=== PATIENT | male | born 1955 | race Caucasian/White ===

== ENCOUNTER → 2019-01-06 | Outpatient (CLI) | payer MEDICARE, OTHER | LOC: LABPAT 14:23 | PROVIDERS: ATTEND Orthopaedic Surgery | DX: Z01.812 Encounter for preprocedural laboratory examination (principal) | CPT/HCPCS: 87070 ==

== ENCOUNTER → 2019-01-26 | Outpatient (CLI) | payer MEDICARE, OTHER ==
[2019-01-26 08:00] LABS: Basophils % (A) 0 %; Eosinophils # (A) 0.2 k/uL (0-0.7); Eosinophils % (A) 3 %; HCT 46.4 % (39.0-53.0); HGB 15.4 gm/dL (13.0-17.5); Lymphocytes # (A) 2.1 k/uL (1.0-4.8); Lymphocytes % (A) 43 %; MCH 30.6 pg (25.0-35.0); MCHC 33.1 g/dL (31.0-37.0); MCV 92.6 fL (80.0-100.0); Mean Platelet Volume 6.6; Monocytes # (A) 0.3 k/uL (0-1.0); Monocytes % (A) 6 %; Neutrophils # (A) 2.1 k/uL (1.3-7.7); Neutrophils % (A) 44 %; Platelet Count 141 k/uL (150-450); RBC 5.02 m/uL (4.30-5.90); RDW 13.3 % (11.5-15.5); WBC 4.8 k/uL (3.8-10.6)
[2019-01-26 08:09] LABS: Partial Thromboplastin Time 26.7 sec (22.0-30.0); Prothrombin Time 10.6 sec (9.0-12.0)
[2019-01-26 08:12] LABS: Potassium 4.3 mmol/L (3.5-5.1)
== END | disposition home or self-care (01) ==
LOC: LABPAT 07:24
PROVIDERS: ATTEND Nurse Practitioner Family
DX: Z01.812 Encounter for preprocedural laboratory examination (principal); Z79.01 Long term (current) use of anticoagulants
CPT/HCPCS: 36415; 80051; 85025; 85610; 85730

== ENCOUNTER 2019-02-02 06:24 | Inpatient (IN) | payer MEDICARE, OTHER ==
--- NOTE | 2019-02-01 13:24 | HP ---
HISTORY AND PHYSICAL REASON FOR ADMISSION: Surgery 02/02/2019 HISTORY OF PRESENT ILLNESS: Kaleb Spain is a 63-year-old patient seen with symptomatic left hip osteoarthritis. After having treatment options discussed, he elected to proceed with left total hip arthroplasty. Consent was obtained. Medical clearance was provided by Dr. Astorga. PAST MEDICAL HISTORY: Hypertension, hyperlipidemia. PAST SURGICAL HISTORY: Noncontributory. MEDICATIONS: Effexor, pravastatin. ALLERGIES: None. SOCIAL HISTORY: Denies current tobacco use. PHYSICAL EXAMINATION: Evaluation of the left hip, there is limited range of motion with severe pain. Positive hip impingement sign. Diffuse tenderness about the hip girdle. Straight leg raise negative. Distal neurovascular exam intact. RADIOGRAPHS: Radiographs of the left hip reveal severe osteoarthritic changes. IMPRESSION: 1. Left hip osteoarthritis. 2. Hypertension. 3. Hyperlipidemia. PLAN: Left total hip arthroplasty. Surgery scheduled 02/02/2019. MMODL / IJN: [id number] /
[~2019-02-02 06:24] MED LIST: ACETAMINOPHEN TAB 500 MG TAB PO ONE; DEXAMETHASONE SOD PHOSPHATE 10 MG/ML 1 ML VIAL IV ONE; HYDROmorphone 0.5 MG/0.5 ML SYRINGE IVP PRN; MELOXICAM 7.5 MG TAB PO ONE; MIDAZOLAM 2 MG/2 ML VIAL IV PRN; ONDANSETRON 4 MG/2 ML VIAL IVP ONE; TRANEXAMIC ACID 1,000 MG in SODIUM CHLORIDE 0.9% 100 ML IVPB ONE; ceFAZolin 3 GM in SODIUM CHLORIDE 0.9% 100 ML IVPB ONE
[2019-02-02] MEDS ORDERED: DEXAMETHASONE SOD PHOSPHATE 10 MG/ML 1 ML VIAL IV ONE (07:24)
[2019-02-02] MEDS: LACTATED RINGERS 1,000 ML IV SCH (07:25)
[2019-02-02] MEDS ORDERED: fentaNYL (PF) 50 MCG/ML 2 ML AMP ONE (07:26)
[2019-02-02] MEDS ORDERED: SODIUM CHLORIDE 0.9% 100 ML BAG ONE (07:26)
[2019-02-02] MEDS ORDERED: MIDAZOLAM 2 MG/2 ML VIAL ONE (07:26)
[2019-02-02] MEDS ORDERED: TRANEXAMIC ACID 1,000 MG/10 ML VIAL ONE (07:26)
[2019-02-02] MEDS ORDERED: PROPOFOL 10 MG/ML 20 ML VIAL IV ONE (07:26)
[2019-02-02] MEDS ORDERED: ROPIVACAINE 246.25 MG, EPINEPHrine 0.5 MG, KETOROLAC 30 MG, cloNIDine HCL/PF 80 MCG, WA... MISCELLANE STA ×5 (07:51)
[2019-02-02] MEDS ORDERED: ceFAZolin 3,000 MG in SODIUM CHLORIDE 0.9% IRRIGATIO 3,000 ML IRRIGATION ONE (07:58)
[2019-02-02] MEDS ORDERED: LACTATED RINGERS 1,000 ML IV ONE (09:31)
[2019-02-02] MEDS ORDERED: NALOXONE 0.4 MG/ML 1 ML VIAL IV PRN (09:34)
[2019-02-02] MEDS ORDERED: HYDROmorphone 1 MG/ML 1 ML SYRINGE IVP PRN (09:34)
[2019-02-02] MEDS ORDERED: HYDROcodone/APAP 7.5-325MG 1 EACH TAB PO PRN (09:34)
[2019-02-02] MEDS ORDERED: ONDANSETRON 4 MG/2 ML VIAL IVP PRN (09:34)
[2019-02-02] MEDS ORDERED: HYDROmorphone 0.5 MG/0.5 ML SYRINGE IVP PRN ×2 (09:34)
--- NOTE | 2019-02-02 09:34 | P.OP ---
Date of Procedure: 02/02/19 Preoperative Diagnosis: Left hip osteoarthritis Postoperative Diagnosis: Left hip osteoarthritis Procedure(s) Performed: Direct anterior left total hip arthroplasty Implants: 1. Depuy Corail KLA size 12 high offset with collar press-fit femoral stem 2. Depuy pinnacle 56 mm press-fit acetabular shell 3. Depuy pinnacle polyethylene acetabular liner neutral 36 mm ID 56 mm OD 4. Biolox delta ceramic femoral head 36 mm +5 Anesthesia: local, spinal Surgeon: Smith Gotti Senior Embedded Software Engineer #1: Damian Beck Estimated Blood Loss (ml): 200 Pathology: other (Femoral head) Condition: stable Disposition: PACU Indications for Procedure: 63-year-old patient seen with symptomatic left hip osteoarthritis. After treatment options were discussed, he elected to proceed with total hip arthroplasty. Operative Findings: See description of procedure Description of Procedure: The patient was taken to the operative suite. Patient underwent a spinal anesthetic by the department of anesthesia. Patient was then transferred to the [place] table. Patient was given preoperative IV antibiotics and TXA. Both lower extremities were placed in standard leg spars. The hip was then prepped and draped in the normal sterile orthopedic fashion. A standard anterior incision was made beginning 3 cm lateral and 1 cm distal to the ASIS extending 10 cm. Dissection was then carried down through the subcutaneous soft tissues down to the fascia overlying the tensor fascia mundo. An incision was now made through the fascia. Careful dissection was taken down exposing the tensor fascia mundo muscle. A Cobra retractor was now placed along the medial femoral neck and a second one along the lateral femoral neck. The venous circumflex vessels were now identified, cauterized and clipped. We identified the anterior hip capsule. An incision was made through the hip capsule along the lateral border. I performed a partial anterior capsulectomy. Retractors were now placed around the femoral neck itself. A femoral neck cut was now made with a sagittal saw. It was completed with an osteotome at the lateral neck area. The femoral head was now removed without difficulty. The extremity was now rotated to 45 of external rotation. It was locked in position. Residual labrum was now debrided out. Serial reaming was performed of the acetabulum while Isaiah TONEY assisted holding an anterior retractor for exposure. Once we reached the appropriate size and a trial was position and fit nicely. The appropriate size was now chosen opened and made available. It was introduced into the acetabulum without difficulty. The C-arm/fluoroscopy was now brought into the operative field. We made sure we had a true AP pelvic view. We now under direct C- arm/fluoroscopy introduced into the acetabular component with appropriate version and inclination. I held the cup in appropriate position well Isaiah TONEY used a mallet to seat the acetabular component. I noted the component now to be well seated and stable. Acetabular cup introduce her was removed. The C-arm was pulled back. An appropriate liner was introduced and clicked into position. It was felt to be stable. At this point retractors were removed. The extremity was now placed into 120 external rotation with no traction. The leg was now dropped to the ground and adducted. Appropriate retractors were now positioned along the proximal femur. We also placed our femoral look into position. Additional capsular releasing was performed to gain access to the proximal femur. We now used a box osteotome. A canal finder was now utilized. Serial broaching was now performed with the assistance of Isaiah TONEY tapping the broaches down with a mallet while held the broach in appropriate rotation and position. This was done until we reached the appropriate size with good overall rotational stability. Appropriate calcar planing was performed. A trial head/neck was placed into position. The hip was now reduced. The C- arm/fluoroscopy was brought back into the operative field. A spot film was obtained of the nonoperative hip. A spot film was obtained of the trial components. Overlays were performed, we noted good overall alignment and positioning for determining leg length. The C-arm/fluoroscopy was pulled back. Retractors were repositioned and the hip was dislocated. The leg was again luke en down to the ground and adducted. Appropriate retractors were repositioned as well as the femoral hook. All trial components were removed. The femoral implant was opened along with the femoral head. The femoral implant was introduced on the appropriate handle into our pre-broached area. I held the component position well Isaiah TONEY used a mallet to seat the femoral component. The femoral component was now noted to be well seated and stable.. The femoral head was introduced with good positioning and fixation noted. Retractors were now removed. The hip was now reduced. There appeared be good positioning of the hip confirmed on intraoperative fluoroscopy. Spot films were obtained to document this. A second gram of TXA was given. The deep and superficial soft tissues were infiltrated with local analgesic. Bipolar cautery had been utilized intermittently through the procedure for hemostasis. The wound was irrigated copiously with pulse lavage mechanical irrigation. The fascia was repaired with Vicryl suture. The subcutaneous soft tissues were repaired in layers with Vicryl suture. The skin was approximated with pernio/Dermabond. Sterile dressings were applied. Patient was then awakened, transferred to a bed and taken to recovery in stable condition. Isaiah TONEY assisted with the complex procedure.
--- NOTE | 2019-02-02 09:50 | XR ---
EXAMINATION TYPE: XR Hip Limited LT, FL guidance operating room DATE OF EXAM: 02/02/2019 COMPARISON: NONE HISTORY: 63-year-old male anterior left hip replacement FINDINGS: 2 intraoperative fluoroscopic images demonstrating left hip arthroplasty. FLUOROSCOPY Fluoroscopy time of 40 seconds was used during anterior left hip replacement. 2 image/s document/s t he procedure. IMPRESSION: Fluoroscopy as above.
--- NOTE | 2019-02-02 14:41 | P.CONS ---
History of Present Illness - Reason for Consult Consult date: 02/02/19 MEDICAL MANAGEMENT Requesting physician: Smith Gotti - Chief Complaint Left hip pain - History of Present Illness 63-year-old male with PMH of hyperlipidemia, depression presents for elective left total hip arthroplasty secondary to osteoarthritis. He underwent this procedure on 02/02/2019. There were no immediate postoperative complications. [facility] has been consulted for medical management of the patient. Patient was seen and examined. No acute events overnight. Patient reports a 3 out of 10 pain in his left hip. Pain is mostly cramp-like in nature into the buttocks and calf. Patient denies any chest pain, shortness of breath or palpitations. No nausea or vomiting. No fever or chills. No changes in urination or bowel habits. He denies any dizziness, numbness/weakness/tingling of the extremities. Review of Systems Pertinent positives and negatives as discussed in HPI, a complete review of systems was performed and all other systems are negative. Past Medical History Past Medical History: Eye Disorder, Hyperlipidemia, Osteoarthritis (OA), Sleep Apnea/CPAP/BIPAP Additional Past Medical History / Comment(s): EARLY GLAUCOMA. USES CPAP. History of Any Multi-Drug Resistant Organisms: None Reported Past Surgical History: Orthopedic Surgery Additional Past Surgical History / Comment(s): ARTHROSCOPIY PERCY SHOULDERS. NASAL SURG. Past Anesthesia/Blood Transfusion Reactions: No Reported Reaction Past Psychological History: Anxiety Smoking Status: Never smoker Past Alcohol Use History: Occasional Past Drug Use History: None Reported - Past Family History Mother Family Medical History: Cancer, Deep Vein Thrombosis (DVT) Medications and Allergies Home Medications Medication Instructions Recorded Confirmed Type [place]-3 Fatty Acids/Fish Oil [Fish 1,400 cap PO DAILY 01/26/19 02/02/19 History Oil 1,000 mg Softgel] Pravastatin Sodium [Pravachol] 40 mg PO DAILY 01/26/19 02/02/19 History Venlafaxine HCl [Effexor XR] 75 mg PO DAILY 01/26/19 02/02/19 History Allergies Allergy/AdvReac Type Severity Reaction Status Date / Time pollen extracts Allergy Mild RUNNY Verified 02/02/19 10:13 NOSE, CONGESTION Physical Exam Vitals: Vital Signs Temp Pulse Pulse Resp BP BP Pulse Ox 02/02/19 10:30 97.4 F L 46 L 12 104/68 95 02/02/19 10:15 42 L 16 106/6 96 02/02/19 10:00 62 16 92/50 97 02/02/19 09:44 97 F L 71 14 102/62 92 L 02/02/19 06:59 98.8 F 54 L 18 129/72 94 L Intake and Output 02/01/19 02/02/19 02/02/19 22:59 06:59 14:59 Intake Total 1301 Output Total 200 Balance 1101 Intake: IV 1301 Output: Estimated Blood Loss 200 General: [non toxic], [no distress], [appears at stated age] Derm: [warm], [dry] Head: [atraumatic], [normocephalic], [symmetric] Eyes: [EOMI], [no lid lag], [anicteric sclera] Mouth: [no lip lesion], [mucus membranes moist] Cardiovascular: [S1S2 reg], [no murmur], [positive DP pulse bilateral], Lungs: [CTA bilateral], [no rhonchi, no rales] , [no accessory muscle use] Abdominal: [soft], [ nontender to palpation], [no guarding], [no appreciable organomegaly] Ext: [no gross muscle atrophy], [no edema], [left hip dressing clean dry and intact] Neuro: [no focal neuro deficits] Psych: [Alert], [oriented], [appropriate affect] Assessment and Plan Assessment: Assessment and Plan Hyperlipidemia TALHA Anxiety Left hip osteoarthritis status post total hip arthroplasty postop day 0 Plan: Continue pravastatin. Plan: Continue BiPAP at bedtime. Plan: Continue Effexor. Plan: Management as per orthopedic surgery. [place], Dilaudid, meloxicam as needed for pain management. Weightbearing as per orthopedic recommendations. Follow PT and OT recommendations. Fall precautions.
[2019-02-02 15:13] VITALS: BMI 388.0
[2019-02-02] MEDS: ceFAZolin IN SWFI 2 GM/20 ML SYRINGE IVP SCH ×2 (17:19→23:16)
[2019-02-02] MEDS: HYDROcodone/APAP 7.5-325MG 1 EACH TAB PO PRN (19:31)
[2019-02-03] MEDS: HYDROcodone/APAP 7.5-325MG 1 EACH TAB PO PRN ×2 (01:33→11:04)
[2019-02-03] MEDS: LACTATED RINGERS 1,000 ML IV SCH (06:02)
[2019-02-03 07:58] LABS: Basophils % (A) 0 %; Eosinophils # (A) 0.1 k/uL (0-0.7); Eosinophils % (A) 1 %; HCT 44.8 % (39.0-53.0); HGB 14.7 gm/dL (13.0-17.5); Lymphocytes # (A) 1.8 k/uL (1.0-4.8); Lymphocytes % (A) 19 %; MCHC 32.8 g/dL (31.0-37.0); MCV 91.5 fL (80.0-100.0); Mean Platelet Volume 7.4; Monocytes # (A) 0.6 k/uL (0-1.0); Monocytes % (A) 6 %; Neutrophils # (A) 6.9 k/uL (1.3-7.7); Neutrophils % (A) 72 %; Platelet Count 140 k/uL (150-450); RBC 4.89 m/uL (4.30-5.90); RDW 14.4 % (11.5-15.5); WBC 9.5 k/uL (3.8-10.6)
[2019-02-03 08:43] VITALS: BP 134/80; PULSE 73; RESP 16; TEMP 98.9
[2019-02-03] MEDS ORDERED: VENLAFAXINE HCL ER 75 MG CAP PO SCH (09:00)
[2019-02-03] MEDS ORDERED: PRAVASTATIN SODIUM 40 MG TAB PO SCH (09:00)
[2019-02-03] MEDS ORDERED: MELOXICAM 7.5 MG TAB PO SCH (09:00)
[2019-02-03] MEDS ORDERED: ENOXAPARIN 40 MG/0.4 ML SYRINGE SQ SCH (09:00)
--- NOTE | 2019-02-03 11:22 | P.PN ---
Subjective Progress Note Date: 02/03/19 Principal diagnosis: Left hip pain Patient was seen and examined. No acute events overnight. Patient reports minimal left hip pain that is well-controlled with [place]. He denies any chest pain, shortness of breath or palpitations. Urinating freely. Worked with PT and did well. Looking for to going home. Objective - Vital Signs Vital signs: Vital Signs Temp 98.9 F 02/03/19 07:45 Pulse 73 02/03/19 07:45 Resp 16 02/03/19 07:45 BP 134/80 02/03/19 07:45 Pulse Ox 96 02/03/19 07:45 Intake & Output 02/02/19 02/03/19 02/03/19 18:59 06:59 18:59 Intake Total 1301 300 Output Total 200 Balance 1101 300 Intake: IV 1301 Intake, IV Titration 20 Amount Lactated Ringers 1,000 ml 20 @ 20 mls/hr IV .Q24H LUCERO Rx#:[id number] Oral 280 Output: Estimated Blood Loss 200 Other: Voiding Method Urinal # Voids 1 - Exam General: [non toxic], [no distress], [appears at stated age] Derm: [warm], [dry] Head: [atraumatic], [normocephalic], [symmetric] Eyes: [EOMI], [no lid lag], [anicteric sclera] Mouth: [no lip lesion], [mucus membranes moist] Cardiovascular: [S1S2 reg], [no murmur], [positive DP pulse bilateral], Lungs: [CTA bilateral], [no rhonchi, no rales] , [no accessory muscle use] Abdominal: [soft], [ nontender to palpation], [no guarding], [no appreciable organomegaly] Ext: [no gross muscle atrophy], [no edema], [left hip dressing clean dry and intact] Neuro: [no focal neuro deficits] Psych: [Alert], [oriented], [appropriate affect] - Labs CBC & Chem 7: 02/03/19 07:09 Labs: Abnormal Lab Results - Last 24 Hours (Table) 02/03/19 Range/Units 07:09 Plt Count 140 L (150-450) k/uL Assessment and Plan Assessment: Assessment and Plan Hyperlipidemia TALHA Anxiety Left hip osteoarthritis status post total hip arthroplasty postop day 1 Plan: Continue pravastatin. Plan: Continue BiPAP at bedtime. Plan: Continue Effexor. Plan: Management as per orthopedic surgery. [place], Dilaudid, meloxicam as needed for pain management. Weightbearing as per orthopedic recommendations. Follow PT and OT recommendations. Fall precautions. Patient is medically cleared for discharge. Thank for this consult.
--- NOTE | 2019-02-03 13:27 | P.PN ---
Subjective Progress Note Date: 02/03/19 Principal diagnosis: Status post direct anterior left total hip arthroplasty Patient evaluated at bedside, his is present. He is doing very well at home, his pain is well-controlled. He denies any chest pain or shortness of breath. He has done well with physical therapy. Objective - Vital Signs Vital signs: Vital Signs Temp 98.9 F 02/03/19 07:45 Pulse 73 02/03/19 07:45 Resp 16 02/03/19 07:45 BP 134/80 02/03/19 07:45 Pulse Ox 96 02/03/19 07:45 Intake & Output 02/02/19 02/03/19 02/03/19 18:59 06:59 18:59 Intake Total 1301 300 Output Total 200 Balance 1101 300 Intake: IV 1301 Intake, IV Titration 20 Amount Lactated Ringers 1,000 ml 20 @ 20 mls/hr IV .Q24H LUCERO Rx#:[id number] Oral 280 Output: Estimated Blood Loss 200 Other: Voiding Method Urinal # Voids 1 - Exam Left lower extremity: Incision is clean, dry, and intact. The exofin fusion tape is in good condition. There is minimal soft tissue swelling and ecchymosis surrounding the medial and lateral aspects of the incision. Calf is soft, no tenderness with palpation. Plantar flexion, dorsiflexion, EHL, FHL are intact. Sensory exam to light touch throughout the extremity is intact, dorsal pedis pulses 2+. - Labs CBC & Chem 7: 02/03/19 07:09 Labs: Abnormal Lab Results - Last 24 Hours (Table) 02/03/19 Range/Units 07:09 Plt Count 140 L (150-450) k/uL Assessment and Plan Plan: Assessment: Postop day #1 status post left direct anterior total hip arthroplasty Plan: Pain control, we'll discharge home on oral medication GI and DVT prophylaxis, aspirin 81 mg twice a day Wound care instructions discussed Therapy and nursing after discharge Medical management Patient will be discharged home today Time with Patient: Less than 30
--- NOTE | 2019-02-03 13:30 | P.DS ---
Providers Date of admission: 02/02/19 06:24 Expected date of discharge: 02/03/19 Attending physician: Smith Gotti Consults: 02/02/19 09:34 Consult Physician Routine Consulting Provider: Sandra Alvarado Consult Reason/Comments: Medical management Do you want consulting provider notified?: Yes Primary care physician: Hubert Astorga [facility] Course: Date of admission: 02/02/2019 Date of discharge: 02/03/2019 Admission diagnosis: Status post direct anterior left total hip arthroplasty Discharge diagnosis: Same Attending physician: Dr. Gotti Surgical procedures: Direct anterior left total hip arthroplasty Brief history: Patient is a 63-year-old male with a history of progressive primary left hip osteoarthritis. At this point patient has failed conservative treatment measures and has opted to proceed with a elective direct anterior left total hip arthroplasty. Hospital course: Details of patient's surgery can be found in operative report. Patient tolerated the procedure well and was subsequently transported to orthopedic floor. Patient's orthopeidc and medical care was provided daily. Patient had daily laboratory tests performed for evaluation of overall blood counts. Patient had daily physical therapy to include strengthening range of motion as well as education with walker ambulation. Patient was treated with Lovenox for their postoperative DVT prophylaxis during their inpatient stay. Patient was noted to have a relatively uneventful postoperative course. Patient reported satisfactory pain control with oral pain medications by postoperative day 0. Patient showed satisfactory progress with physical therapy. Patient moved steadily through the program and had no difficulty meeting the goals by postoperative day 1. Given patient's otherwise satisfactory course and having met physical therapy goals, plan is to discharge patient home on postoperative day 1. Discharge condition/disposition: Patient will be discharged home in stable condition. Discharge medications: Instructions are given on resumption of patient's normal daily medications per primary care recommendation, in addition patient will be prescribed [place] 7.5 mg/325 mg, Colace 100 mg, aspirin 81 mg. Discharge instructions: 1. Wound care and infection precautions, keep incision dry and covered while showering, no lotions, creams, moisturizers. No soaking, tubs, pools, hottubs. Do not scrub over the incision. 2. Weight-bear as tolerated with walker / cane until follow-up. 3. Ice and elevate when necessary. Do not exceed 20 minutes per hour with ice pack. 4. Utilize compression sleeve until seen at first follow up appointment. 5. Visiting nursing care. 6. Home physical therapy. 7. Pain meds and anticoagulants per prescription. 8. Pain medication has potential to cause constipation. Increase oral fluid and fiber intake. Contact primary care provider if you have not had a bowel movement within 48 hours after discharge 9. No anti-inflammatory medication until discussed at first post operative visit, this including Motrin, Aleve, Mobic, Diclofenac. 10. Follow up in office at 2 weeks postop with Isaiah Beck PA-C 11. Follow up with your primary care doctor 7-10 days after discharge. 12. Contact [facility] with any questions, . Procedures: Direct anterior left total hip arthroplasty Patient Condition at Discharge: Good Plan - Discharge Summary Discharge Rx Participant: Yes New Discharge Prescriptions: New Aspirin [Adult Low Dose Aspirin EC] 81 mg PO BID #60 tablet. Docusate [Colace] 100 mg PO DAILY #30 capsule HYDROcodone/APAP 7.5-325MG [[place] 7.5] 1 - 2 each PO Q6HR PRN #40 tab PRN Reason: Pain No Action Venlafaxine HCl [Effexor XR] 75 mg PO DAILY Pravastatin Sodium [Pravachol] 40 mg PO DAILY [place]-3 Fatty Acids/Fish Oil [Fish Oil 1,000 mg Softgel] 1,400 cap PO DAILY Discharge Medication List [place]-3 Fatty Acids/Fish Oil [Fish Oil 1,000 mg Softgel] 1,400 cap PO DAILY 01/26/19 [History] Pravastatin Sodium [Pravachol] 40 mg PO DAILY 01/26/19 [History] Venlafaxine HCl [Effexor XR] 75 mg PO DAILY 01/26/19 [History] Aspirin [Adult Low Dose Aspirin EC] 81 mg PO BID #60 tablet. 02/03/19 [Rx] Docusate [Colace] 100 mg PO DAILY #30 capsule 02/03/19 [Rx] HYDROcodone/APAP 7.5-325MG [[place] 7.5] 1 - 2 each PO Q6HR PRN #40 tab 02/03/19 [Rx] Follow up Appointment(s)/Referral(s): Hubert Astorga MD [Primary Care Provider] - 02/10/19 1:15 pm [facility], [NON-STAFF] - Damian Beck PAC [PHYSICIAN ASSISTANT PROFESSOR OF MARINE BIOLOGY] - 02/18/19 11:00 am Activity/Diet/Wound Care/Special Instructions: Orthopedic Discharge Instructions: 1. Wound care and infection precautions, keep incision dry and covered while showering, no lotions, creams, moisturizers. No soaking, pools, hot tubs. Do not scrub over incision. 2. Weight-bear as tolerated with walker / cane until follow-up. 3. Ice and elevate when necessary. Do not exceed 20 minutes per hour with ice pack. 4. Utilize compression sleeve until seen at first follow up appointment. 5. Pain meds and anticoagulants per prescription. 6. Pain medication has potential to cause constipation. Increase oral fluid and fiber intake. Contact primary care provider if you have not had a bowel movement within 48 hours after discharge. 7. No anti-inflammatory medication until discussed at first post operative visit, this including Motrin, Aleve, Mobic, Diclofenac. 8. Follow up in office at 2 weeks postop with Isaiah Beck PA-C 9. Follow up with your primary care doctor 7-10 days after discharge. 10. Contact [facility] with any questions, . Discharge Disposition: HOME WITH HOME HEALTH SERVICES
== END 2019-02-03 14:59 | disposition home health service (06) | DRG 470 ==
LOC: 2ORMAIN 06:24 → 4SSUR 09:40
PROVIDERS: ADMIT Orthopaedic Surgery; ATTEND Orthopaedic Surgery
PROC: 0SRB04A Replacement of Left Hip Joint with Ceramic on Polyethylene Synthetic Substitute, Uncemented, Open Approach (ICD-10-PCS; principal; 2019-02-02 07:30)
DX: M16.12 Unilateral primary osteoarthritis, left hip (principal); E78.5 Hyperlipidemia, unspecified; F41.9 Anxiety disorder, unspecified; G47.33 Obstructive sleep apnea (adult) (pediatric); H40.9 Unspecified glaucoma; I10 Essential (primary) hypertension; F32.9 Major depressive disorder, single episode, unspecified; G25.81 Restless legs syndrome; H91.93 Unspecified hearing loss, bilateral; Z79.899 Other long term (current) drug therapy; Z91.048 Other nonmedicinal substance allergy status; Z82.49 Family history of ischemic heart disease and other diseases of the circulatory system; Z80.1 Family history of malignant neoplasm of trachea, bronchus and lung
CPT/HCPCS: 73501; 85025; 86850; 86900; 86901; 88300

== ENCOUNTER → 2019-03-25 | Outpatient (CLI) | payer MEDICARE, OTHER ==
--- NOTE | 2019-03-25 15:27 | XR ---
EXAMINATION TYPE: XR Hip Complete LT DATE OF EXAM: 03/25/2019 CLINICAL HISTORY: Left hip pain and osteoarthritis. TECHNIQUE: Single AP portable view of left hip is obtained. COMPARISON: None. FINDINGS: Metallic hardware from left hip arthroplasty is seen and appears satisfactory in alignment and position. No fracture seen of the [place] bone of the left hip nor visualized pelvis. IMPRESSION: Metallic hardware from left hip arthroplasty is satisfactory in position.
== END | disposition home or self-care (01) ==
LOC: RADXRMAIN 12:38
PROVIDERS: ATTEND Orthopaedic Surgery
DX: Z96.642 Presence of left artificial hip joint (principal)
CPT/HCPCS: 73502

== ENCOUNTER → 2021-05-04 | Outpatient (CLI) | payer MEDICARE, OTHER ==
--- NOTE | 2021-05-04 16:30 | CT ---
EXAMINATION TYPE: CT abdomen pelvis wo con DATE OF EXAM: 05/04/2021 HISTORY: h/o kidney stones and flank pain CT DLP: 1372 mGycm. Automated Exposure Control for Dose Reduction was Utilized. TECHNIQUE: CT scan of the abdomen and pelvis is performed without oral or IV contrast. COMPARISON: NONE FINDINGS: Within the limitations of a non-contrast study, the following observations are made. LUNG BASES: No significant abnormality is appreciated. LIVER/GB: Visualized liver isodense to slightly hypodense relative to spleen consistent with mild dif fuse fatty infiltration. PANCREAS: No significant abnormality is seen. SPLEEN: No significant abnormality is seen. ADRENALS: No significant abnormality is seen. KIDNEYS: Some cortical thinning in both kidneys. No renal stones or hydronephrosis seen bilaterally. There are multiple estimated near 40-50 small dependent calculi in the urinary bladder. BOWEL: No suspicious small or large bowel dilatation. GENITAL ORGANS: Suboptimal evaluation of prostate gland due to streak artifact from adjacent left hip . LYMPH NODES: No greater than 1cm abdominal or pelvic lymph nodes are appreciated. OSSEOUS STRUCTURES: Some bridging osteophytes in the thoracic spine are noted. Metallic hardware fro m left hip arthroplasty causes streak artifact limiting evaluation of pelvic structures. OTHER: No significant additional abnormality is seen. IMPRESSION: Multiple small nondependent calculi in bladder. No hydronephrosis or obstructing ureter c alculi seen.
== END | disposition home or self-care (01) ==
LOC: RADCTMAIN 15:56
PROVIDERS: ATTEND Internal Medicine
DX: N21.0 Calculus in bladder (principal)
CPT/HCPCS: 74176

== ENCOUNTER → 2021-06-19 | Outpatient (CLI) | payer MEDICARE, OTHER ==
[2021-06-19 12:05] LABS: Basophils % (A) 1 %; Eosinophils # (A) 0.1 k/uL (0-0.7); Eosinophils % (A) 4 %; HCT 47.4 % (39.0-53.0); HGB 15.3 gm/dL (13.0-17.5); Lymphocytes # (A) 1.2 k/uL (1.0-4.8); Lymphocytes % (A) 34 %; MCH 31.3 pg (25.0-35.0); MCHC 32.2 g/dL (31.0-37.0); MCV 97.2 fL (80.0-100.0); Mean Platelet Volume 7.1; Monocytes # (A) 0.3 k/uL (0-1.0); Monocytes % (A) 8 %; Neutrophils # (A) 1.8 k/uL (1.3-7.7); Neutrophils % (A) 50 %; Platelet Count 142 k/uL (150-450); RBC 4.87 m/uL (4.30-5.90); RDW 13.1 % (11.5-15.5); WBC 3.6 k/uL (3.8-10.6)
[2021-06-19 12:20] LABS: Appearance,Urine Clear (Clear); Bilirubin,Urine Negative (Negative); Blood,Urine Negative (Negative); Color,Urine Light Yellow; Glucose,Urine (UA) Negative (Negative); Ketones,Urine Negative (Negative); Leukocyte Esterase,Urine Negative (Negative); Nitrite,Urine Negative (Negative); PH, Urine 5.5 (5.0-8.0); Protein,Urine Negative (Negative); Specific Gravity,Urine 1.015 (1.001-1.035); Urobilinogen,Urine <2.0 mg/dL (<2.0)
[2021-06-19 12:38] LABS: African American GFR (CKD) >90 (>60 ml/min/1.73 sqM); Anion Gap 7 mmol/L; Blood Urea Nitrogen 20 mg/dL (9-20); Calcium 9.4 mg/dL (8.4-10.2); Carbon Dioxide 27 mmol/L (22-30); Chloride 106 mmol/L (98-107); Glucose 91 mg/dL (74-99); Non-African American GFR(CKD) 86 (>60 ml/min/1.73 sqM); Potassium 4.4 mmol/L (3.5-5.1); Sodium 140 mmol/L (137-145)
== END ==
LOC: PAT 10:29
PROVIDERS: ATTEND Urology
DX: N21.9 Calculus of lower urinary tract, unspecified (principal); Z91.048 Other nonmedicinal substance allergy status
CPT/HCPCS: 80048; 81003; 85025; 87086

== ENCOUNTER 2021-06-26 08:47 | Day surgery (SDC) | payer MEDICARE, OTHER ==
[2021-06-21 15:57] VITALS: BMI 36.9
[~2021-06-26 08:47] MED LIST changes: -ACETAMINOPHEN TAB 500 MG TAB PO ONE; -DEXAMETHASONE SOD PHOSPHATE 10 MG/ML 1 ML VIAL IV ONE; +DEXAMETHASONE SOD PHOSPHATE 4 MG/ML 1 ML VIAL IV ONE; +LACTATED RINGERS 1,000 ML IV SCH; -MELOXICAM 7.5 MG TAB PO ONE; -MIDAZOLAM 2 MG/2 ML VIAL IV PRN; -TRANEXAMIC ACID 1,000 MG in SODIUM CHLORIDE 0.9% 100 ML IVPB ONE; -ceFAZolin 3 GM in SODIUM CHLORIDE 0.9% 100 ML IVPB ONE
[2021-06-26] MEDS ORDERED: ONDANSETRON 4 MG/2 ML VIAL ONE (09:18)
--- NOTE | 2021-06-26 09:36 | P.HPIHPCON ---
History of Present Illness H&P Date: 06/26/21 Chief Complaint: Bladder stone This is 65-year-old male with history of multiple bladder stones. He underwent a CT abdomen and pelvis that showed greater than 50 bladder stones, all measured smaller than 1 cm. He is having intermittent dysuria secondary to his bladder stones. Discussed with him the option of doing a cystolithotripsy . Discussed the risk of the procedure which includes but not limited to bleeding, infection, injury to the bladder. She will the risk and agreed to proceed Consent for Procedure: I have explained the operation/procedure to the patient, including the risks, benefits, side effects, alternative therapies (including not receiving the proposed treatment or service), the likelihood of the patient achieving his/her goals, and potential recuperation problems for the procedure/sedation/analgesia, as well as any blood products, if indicated. I also explained to the patient the risks, benefits and side effects of the alternatives, as well as the risks related to not receiving the proposed procedure, care, treatment, or services. Past Medical History Past Medical History: Eye Disorder, Hyperlipidemia, Osteoarthritis (OA), Sleep Apnea/CPAP/BIPAP Additional Past Medical History / Comment(s): EARLY GLAUCOMA. USES CPAP. History of Any Multi-Drug Resistant Organisms: None Reported Past Surgical History: Joint Replacement, Orthopedic Surgery Additional Past Surgical History / Comment(s): ARTHROSCOPIY PERCY SHOULDERS. NASAL SURG. left hip replacement. Past Anesthesia/Blood Transfusion Reactions: No Reported Reaction Past Psychological History: Anxiety Smoking Status: Never smoker Past Alcohol Use History: Occasional Past Drug Use History: None Reported - Past Family History Mother Family Medical History: Cancer, Deep Vein Thrombosis (DVT) Father Family Medical History: Coronary Artery Disease (CAD), Dementia, Osteoarthritis (OA) Medications and Allergies Home Medications Medication Instructions Recorded Confirmed Type [place]-3 Fatty Acids/Fish Oil [Fish 1,400 cap PO DAILY 01/26/19 06/26/21 History Oil 1,000 mg Softgel] Pravastatin Sodium [Pravachol] 40 mg PO DAILY 01/26/19 06/26/21 History Venlafaxine HCl [Effexor XR] 75 mg PO DAILY 01/26/19 06/26/21 History Tamsulosin [Flomax] 0.4 mg PO DAILY 06/21/21 06/26/21 History Allergies Allergy/AdvReac Type Severity Reaction Status Date / Time pollen extracts Allergy Mild RUNNY Verified 06/26/21 09:06 NOSE, CONGESTION Surgical - Exam Vital Signs Temp Pulse Resp BP Pulse Ox 97 F L 52 L 18 129/71 94 L 06/26/21 09:14 06/26/21 09:14 06/26/21 09:14 06/26/21 09:14 06/26/21 09:14 - General no distress, no pain - Eyes PERRL, normal ocular movement - ENT normal nares, normal mucosa - Respiratory normal expansion, normal respiratory effort - Abdomen Abdomen: soft, non tender - Psychiatric oriented to time, oriented to person, oriented to place Assessment and Plan Assessment: OR for cystolithotripsy
[2021-06-26] MEDS ORDERED: fentaNYL (PF) 50 MCG/ML 2 ML AMP ONE (09:50)
[2021-06-26] MEDS ORDERED: LIDOCAINE 1% INJ 10MG/ML (20 ML MDV) ONE (09:50)
[2021-06-26] MEDS ORDERED: MIDAZOLAM 2 MG/2 ML VIAL ONE (09:50)
[2021-06-26] MEDS ORDERED: SUCCINYLCHOLINE CHLORIDE VIAL 200 MG/10 ML VIAL IV ONE (09:50)
[2021-06-26] MEDS ORDERED: PROPOFOL 10 MG/ML 20 ML VIAL IV ONE (09:50)
[2021-06-26] MEDS ORDERED: KETOROLAC 15 MG/ML 1 ML VIAL ONE (09:50)
[2021-06-26] MEDS ORDERED: DEXAMETHASONE SOD PHOSPHATE 4 MG/ML 1 ML VIAL ONE (09:50)
--- NOTE | 2021-06-26 11:02 | P.OP ---
Date of Procedure: 06/26/21 Preoperative Diagnosis: Bladder stone Postoperative Diagnosis: Same Procedure(s) Performed: Cystoscopy, cystolitholapaxy(total stone burden >2.5 cm) Anesthesia: GETA Pathology: other (Bladder stone) Condition: stable Disposition: PACU Indications for Procedure: This is 65-year-old male with history of multiple bladder stones. He underwent a CT abdomen and pelvis that showed greater than 50 bladder stones, all measured smaller than 1 cm, total stone burden greater than 2.5 cm. He is having intermittent dysuria secondary to his bladder stones. Discussed with him the option of doing a cystolithotripsy . Discussed the risk of the procedure which includes but not limited to bleeding, infection, injury to the bladder. She will the risk and agreed to proceed Operative Findings: More than 50 bladder stones Description of Procedure: Patient was brought to the operating room, general anesthesia was induced. He was prepped and draped in sterile fashion and placed in dorsal lithotomy position. Cystoscopy fitted with a 21-Citizen [place] sheath was inserted per urethra, cystoscopy was performed which showed more than 50 bladder stones, otherwise no abnormality within the bladder. He did have an enlarged median lobe. Using the holmium laser the stones were fragmented into smaller fragments, all stone fragments were irrigated out using the cystoscope. Repeat cystoscopy showed no injury to the bladder or any stone remaining bladder stones. At this time the cystoscope was withdrawn and a [address] [address] was placed with return of light pink urine. The balloon was inflated with 10 mL's. Patient tolerated the procedure well taken to recovery in stable condition
[2021-06-26 11:15] VITALS: RESP 16; TEMP 97.6
[2021-06-26 12:19] VITALS: BP 121/77; PULSE 53
== END 2021-06-26 13:08 | disposition home or self-care (01) ==
LOC: OR 08:47
PROVIDERS: ATTEND Urology
DX: N21.0 Calculus in bladder (principal); F41.9 Anxiety disorder, unspecified; E78.5 Hyperlipidemia, unspecified; M19.90 Unspecified osteoarthritis, unspecified site; H40.9 Unspecified glaucoma; F32.9 Major depressive disorder, single episode, unspecified; G47.33 Obstructive sleep apnea (adult) (pediatric); Z79.899 Other long term (current) drug therapy; Z87.442 Personal history of urinary calculi
CPT/HCPCS: 82365; 52318; J2250; J0330; J1100; J0690; J2405; J2001; J3010; J1885; J2704

== ENCOUNTER → 2022-10-31 | Outpatient (CLI) | payer MEDICARE ==
--- NOTE | 2022-11-01 07:45 | MR ---
EXAMINATION TYPE: MR knee RT wo con DATE OF EXAM: 10/31/2022 COMPARISON: NONE HISTORY: Right knee inner pain for 3 weeks TECHNIQUE: Multiplanar, multisequence images of the knee is performed without IV contrast. FINDINGS: MEDIAL MENISCUS: Increased signal posterior horn has vertical and horizontal component extending to s uperior articular surface sagittal image 10. LATERAL MENISCUS: Some increased signal central body and nearly horizontal in appearance coronal imag e 24. No definitive extension to articular surface CRUCIATE LIGAMENTS: The anterior and posterior cruciate ligaments are intact and unremarkable. COLLATERAL LIGAMENTS: The medial collateral ligament and lateral collateral ligament complex are inta ct. Mild fluid signal surrounds medial collateral ligament. EXTENSOR MECHANISM: Visualized quadriceps and patellar tendons are intact. EFFUSION: Large size suprapatellar joint effusion. POPLITEAL CYST: Tiny popliteal/louis cyst. TRICOMPARTMENT SPACES: Mild to moderate narrowing and mild spurring patellofemoral compartment. CARTILAGE: Tricompartmental articular cartilage is preserved. BONE MARROW SIGNAL: No focal abnormal marrow signal is appreciated. OTHER: No additional significant abnormality is appreciated. IMPRESSION: 1. Full-thickness tear posterior horn medial meniscus. 2. Large suprapatellar joint effusion. 3. Mild MCL sprain injury. 4. At least an intrasubstance tear lateral meniscus. 4. Tricompartment degenerative changes that are most prominent at the patellofemoral compartment wher e mild to moderate changes are present as detailed above. 5. Tiny popliteal cyst.
== END | disposition home or self-care (01) ==
LOC: RADMRIMAIN 20:00
PROVIDERS: ATTEND Orthopaedic Surgery
DX: M23.221 Derangement of posterior horn of medial meniscus due to old tear or injury, right knee (principal); M17.11 Unilateral primary osteoarthritis, right knee; M25.461 Effusion, right knee; M71.21 Synovial cyst of popliteal space [Baker], right knee

== ENCOUNTER → 2022-11-27 | Outpatient (CLI) | payer MEDICARE ==
[2022-11-27 15:43] LABS: Basophils # (A) 0.03 X 10*3/uL (0.00-0.10); Basophils % (A) 0.7 %; Eosinophils # (A) 0.21 X 10*3/uL (0.04-0.35); Eosinophils % (A) 5.2 %; HCT 44.6 % (39.6-50.0); HGB 14.8 g/dL (13.0-17.0); Immature Grans, Automated 0.2 %; Lymphocytes # (A) 1.41 X 10*3/uL (0.90-5.00); MCH 31.2 pg (27.0-32.0); MCHC 33.2 g/dL (32.0-37.0); MCV 94.1 fL (80.0-97.0); Mean Platelet Volume 10.9 fL (9.5-12.2); Monocytes # (A) 0.47 X 10*3/uL (0.20-1.00); Monocytes % (A) 11.7 %; NRBC Per 100 WBC 0 /100 WBCS (0.0-0.0); Neutrophils % (A) 47.2 %; Platelet Count 126 X 10*3/uL (140-440); RBC 4.74 X 10*6/uL (4.40-5.60); RDW 13.3 % (11.5-14.5); WBC 4.03 X 10*3/uL (4.50-10.00)
[2022-11-27 16:24] LABS: Anion Gap 9.2 mmol/L (10.00-18.00); Potassium 4.6 mmol/L (3.5-5.5)
== END | disposition home or self-care (01) ==
LOC: LABWHC1 09:44
PROVIDERS: ATTEND Orthopaedic Surgery
DX: Z01.812 Encounter for preprocedural laboratory examination (principal); M23.91 Unspecified internal derangement of right knee; I45.10 Unspecified right bundle-branch block; R00.1 Bradycardia, unspecified; R94.31 Abnormal electrocardiogram [ECG] [EKG]
CPT/HCPCS: 36415; 80051; 85025; 93005

== ENCOUNTER 2022-12-20 08:00 | Day surgery (SDC) | payer MEDICARE ==
--- NOTE | 2022-12-20 00:20 | HP ---
HISTORY AND PHYSICAL Surgery is scheduled for 12/20/2022. HISTORY OF PRESENT ILLNESS: Kaleb Spain is a 67-year-old gentleman seen with progressive right knee pain. We discussed options for treatment. He elected to proceed with right knee arthroscopy. Consent regarding the procedure was obtained. PAST MEDICAL HISTORY: Hypertension, hyperlipidemia. PAST SURGICAL HISTORY: Left shoulder arthroscopy. DAILY MEDICATIONS: 1. Lisinopril. 2. Pravastatin. ALLERGIES: None. SOCIAL HISTORY: Denies tobacco use. PHYSICAL EVALUATION OF THE RIGHT KNEE: Range of motion is negative 3 to 125 degrees. Tenderness along the medial and lateral joint lines. Positive medial Phuc's. Positive lateral Phuc's. Ligaments stable. Hip rotation without pain. Distal neurovascular exam is intact. RADIOGRAPHS: Right knee radiographs reveal some mild osteoarthritic changes. MRI right knee revealed medial meniscal tear, lateral meniscal tear. No large effusion. IMPRESSION: 1. Internal derangement of right knee with medial and lateral meniscal tears. 2. Hypertension. 3. Hyperlipidemia. PLAN: Right knee arthroscopy with partial medial/lateral meniscectomy and debridement. MMODL / IJN: [id number] /
[~2022-12-20 08:00] MED LIST changes: -HYDROmorphone 0.5 MG/0.5 ML SYRINGE IVP PRN; +ceFAZolin 3 GM in SODIUM CHLORIDE 0.9% 100 ML IVPB PRN; +fentaNYL (PF) 50 MCG/ML 2 ML AMP IV PRN
[2022-12-20] MEDS ORDERED: LIDOCAINE 2% INJ 20 MG/ML (2 ML VIAL) ONE (08:05)
[2022-12-20] MEDS ORDERED: PROPOFOL 10 MG/ML 20 ML VIAL IV ONE (08:05)
[2022-12-20] MEDS ORDERED: GLYCOPYRROLATE 0.2 MG/ML 2 ML VIAL ONE (08:05)
[2022-12-20] MEDS ORDERED: MIDAZOLAM 2 MG/2 ML VIAL ONE (08:05)
[2022-12-20] MEDS ORDERED: KETOROLAC 15 MG/ML 1 ML VIAL ONE (08:05)
[2022-12-20] MEDS ORDERED: fentaNYL (PF) 50 MCG/ML 2 ML AMP ONE (08:05)
[2022-12-20] MEDS ORDERED: BUPIVACAINE (PF) 0.25% 30 ML VIAL SQ ONE ×2 (09:10→09:40)
--- NOTE | 2022-12-20 09:56 | P.OP ---
Date of Procedure: 12/20/22 Preoperative Diagnosis: Internal derangement right knee Postoperative Diagnosis: 1. Tear medial and lateral meniscus right knee 2. Grade 4 chondromalacia medial femoral condyle right knee 3. Reactive synovitis medial, lateral and suprapatellar compartments right knee Procedure(s) Performed: 1. Arthroscopic partial medial and lateral meniscectomy right knee 2. Arthroscopic microfracture medial femoral condyle right knee 3. Arthroscopic partial synovectomy medial, lateral and suprapatellar compartments right knee Anesthesia: MARYANNEA, local Surgeon: Smith Gotti Estimated Blood Loss (ml): 7 Pathology: none sent Condition: stable Disposition: PACU Indications for Procedure: 67-year-old patient seen with progressive right knee pain. After having treatment options discussed, he elected to proceed with arthroscopy. Operative Findings: see description of procedure Description of Procedure: Patient was taken to the operative suite. Patient underwent a general anesthetic by the department of anesthesia. Patient was given preoperative antibiotics. The right lower extremity was placed in a well-padded arthroscopic leg dawson. The right leg was prepped and draped in the normal sterile orthopedic fashion. A lateral parapatellar and suprapatellar incision was made. Trochars were inserted. Arthroscopy was initiated. Suprapatellar pouch revealed diffuse thick reactive synovitis. The patellofemoral joint appeared to articulate congruently. There was grade 1 chondromalacia patella with no tears. The scope was guided into the medial gutter. No loose bodies or plica were identified. The scope was then guided into the medial compartment. A medial parapatellar incision was made. Trocar inserted followed by probe. There was a complex tear involving the posterior horn medial meniscus extending into the midbody area. There were areas of grade 3/4 chondromalacia medial femoral condyle with some small osteochondral flap tears. There was thick reactive synovitis anteriorly. I performed a partial medial meniscectomy getting down to stable meniscal tissue. I performed a chondroplasty medial femoral condyle as well as a partial synovectomy decompressing reactive synovitis. I did note a small area of exposed bone medial femoral condyle measuring about 0.7 cm. I introduced a microfracture awl and I performed a microfracture to that area penetrating the bone with resultant bleeding at the microfracture site. Residual meniscus was probed and was found to be stable. The residual osteochondral surface appeared stable. There was good decompression of the synovitis. Scope and probe were then guided into the intercondylar notch. Cruciates were identified, probed and found to be stable. The scope and probe were then guided into lateral compartment. There was a radial tear involving the mid body and posterior horn lateral meniscus. There were some mild grade 1 chondromalacia changes of the tibial plateau. There was some thick reactive synovitis anteriorly. I performed a partial lateral meniscectomy. I performed a partial synovectomy. The residual meniscus was stable. There was good decompression of the synovitis. The scope was in guided back into the suprapatellar compartment. I introduced a motorized shaver into the suprapatellar compartment. I debrided some piecemeal fragments of meniscus I encountered. I performed a partial synovectomy. Shaver was now removed. There was good decompression of the synovitis. I took one more look on the entire knee, no residual debris. Instruments were now removed from the joint. The joint was infiltrated with .25% Marcaine. Steri-Strips were applied to the portal sites. Sterile dressings were applied. The patient was placed into a NEGRA hose. No tourniquet was utilized. The patient was awakened, transferred to a bed and taken to recovery stable satisfactory condition.
[2022-12-20 09:57] VITALS: RESP 16; TEMP 96.8
[2022-12-20 10:55] VITALS: BP 124/59; PULSE 49
== END 2022-12-20 11:08 | disposition home or self-care (01) ==
LOC: OR 08:00
PROVIDERS: ATTEND Orthopaedic Surgery
DX: M23.300 Other meniscus derangements, unspecified lateral meniscus, right knee (principal); M23.303 Other meniscus derangements, unspecified medial meniscus, right knee; M94.261 Chondromalacia, right knee; M65.861 Other synovitis and tenosynovitis, right lower leg; I10 Essential (primary) hypertension; E78.5 Hyperlipidemia, unspecified; Z79.899 Other long term (current) drug therapy

== ENCOUNTER 2023-04-26 11:01 | Day surgery (SDC) | payer MEDICARE ==
[2023-04-24 14:49] VITALS: BMI 35.1
[2023-04-26] MEDS: LACTATED RINGERS 1,000 ML IV SCH ×2 (12:37→13:08)
[2023-04-26 12:54] VITALS: TEMP 97.1
[2023-04-26] MEDS ORDERED: PROPOFOL 10 MG/ML 20 ML VIAL IV ONE (13:09)
--- NOTE | 2023-04-26 13:29 | P.PCN ---
Date of Procedure: 04/26/23 Procedure(s) Performed: BRIEF HISTORY: Patient is a 67-year-old pleasant white male scheduled for an elective colonoscopy as a part of screening for colon cancer. PROCEDURE PERFORMED: Colonoscopy. PREOPERATIVE DIAGNOSIS: Screening for colon cancer. IV sedation per Anesthesia. PROCEDURE: After informed consent was obtained, the patient, was brought into the endoscopy unit. IV sedation was administered by Anesthesia under continuous monitoring. Digital rectal examination was normal. Initially the Olympus CF-160 flexible video colonoscope was then inserted in the rectum, gradually advanced into the cecum without any difficulty. Careful examination was performed as the scope was gradually being withdrawn. Ileocecal valve and the appendiceal orifice were visualized and appeared normal. Prep was excellent. Mucosa of the cecum, ascending colon, transverse colon, descending colon, sigmoid colon, and rectum appeared normal. Retroflexion was performed in the rectum and no lesions were seen. The patient tolerated the procedure well. IMPRESSION: Normal-appearing colon from rectum to cecum with no evidence of colorectal neoplasia. RECOMMENDATIONS: Findings of this examination were discussed with the patient as well as his family.. He was advised to have a repeat screening colonoscopy in 10 years.
[2023-04-26 13:55] VITALS: BP 100/78; PULSE 47; RESP 18
== END 2023-04-26 14:17 | disposition home or self-care (01) ==
LOC: ORWHC2ENDO 11:01
PROVIDERS: ATTEND Internal Medicine Gastroenterology
DX: Z12.11 Encounter for screening for malignant neoplasm of colon (principal); I10 Essential (primary) hypertension; E78.5 Hyperlipidemia, unspecified; G47.33 Obstructive sleep apnea (adult) (pediatric); M19.90 Unspecified osteoarthritis, unspecified site; Z79.811 Long term (current) use of aromatase inhibitors; Z79.899 Other long term (current) drug therapy
CPT/HCPCS: J2704; G0121

== ENCOUNTER → 2023-11-04 | Outpatient (CLI) | payer MEDICARE ==
[2023-11-04 21:57] LABS: Chol/HDL Ratio 4.67 Ratio; LDL Cholesterol,Calculated 82.4 mg/dL (0.0-131.0); Prostate Specific Antigen 0.21 ng/mL (0.000-6.500)
== END | disposition home or self-care (01) ==
LOC: LABPAT 15:03
PROVIDERS: ATTEND Orthopaedic Surgery
DX: Z01.812 Encounter for preprocedural laboratory examination (principal); Z22.322 Carrier or suspected carrier of Methicillin resistant Staphylococcus aureus; M16.11 Unilateral primary osteoarthritis, right hip; E66.9 Obesity, unspecified
CPT/HCPCS: 80061; 83036; 84153; 84443; 86850; 86900; 86901; 87070

== ENCOUNTER → 2023-11-07 | Outpatient (CLI) | payer MEDICARE ==
[2023-11-07 16:05] LABS: Blood Urea Nitrogen 20.6 mg/dL (9.0-27.0); Calcium 9.2 mg/dL (8.7-10.3); Chloride 108 mmol/L (96-109); Glucose 94 mg/dL (70-110); Sodium 142 mmol/L (135-145)
[2023-11-07 16:33] LABS: Basophils # (A) 0.02 X 10*3/uL (0.00-0.10); Basophils % (A) 0.5 %; Eosinophils % (A) 2.3 %; HCT 44.3 % (39.6-50.0); HGB 14.6 g/dL (13.0-17.0); Immature Grans, Automated 0 %; Lymphocytes # (A) 1.43 X 10*3/uL (0.90-5.00); Lymphocytes % (A) 32.7 %; MCH 30.5 pg (27.0-32.0); MCV 92.5 FL (80.0-97.0); Mean Platelet Volume 10.7 FL (9.5-12.2); Monocytes # (A) 0.47 X 10*3/uL (0.20-1.00); Monocytes % (A) 10.8 %; NRBC Per 100 WBC 0 X 10*3/uL (0.00-0.01); Neutrophils # (A) 2.35 X 10*3/uL (1.80-7.70); Neutrophils % (A) 53.7 %; Platelet Count 143 X 10*3/uL (140-440); RBC 4.79 X 10*6/uL (4.40-5.60); RDW 13.3 % (11.5-14.5); WBC 4.37 X 10*3/uL (4.50-10.00)
[2023-11-07 20:15] LABS: INR 1.07 sec (0.93-1.11); Prothrombin Time 11.5 sec (9.9-11.9)
== END | disposition home or self-care (01) ==
LOC: LABPAT 11:19
PROVIDERS: ATTEND Orthopaedic Surgery
DX: Z01.812 Encounter for preprocedural laboratory examination (principal); M16.11 Unilateral primary osteoarthritis, right hip
CPT/HCPCS: 36415; 80048; 85025; 85610

== ENCOUNTER 2023-11-11 10:11 | Day surgery (SDC) | payer MEDICARE ==
--- NOTE | 2023-11-10 12:30 | HP ---
HISTORY AND PHYSICAL DATE OF SURGERY: 11/11/2023. HISTORY OF PRESENT ILLNESS: Kaleb Spain is a 68-year-old gentleman, seen with symptomatic right hip osteoarthritis. We discussed options. He elected to proceed with direct anterior right total hip arthroplasty. Consents obtained. Medical clearance by Dr. Juan Antonio Leal. PAST MEDICAL HISTORY: Hypertension and hyperlipidemia. PAST SURGICAL HISTORY: Left shoulder arthroscopy, left total hip arthroplasty, and right knee arthroscopy. DAILY MEDICATIONS: 1. Pravastatin. 2. Lisinopril. 3. Motrin. ALLERGIES: None. SOCIAL HISTORY: Denies tobacco use. PHYSICAL EVALUATION OF THE RIGHT HIP: He has limited range of motion with significant pain. Positive hip impingement sign. Straight-leg raise negative. Distal neurovascular exam is intact. RADIOGRAPHS: Right hip revealed severe osteoarthritic changes. IMPRESSION: 1. Right hip osteoarthritis. 2. Hypertension. 3. Hyperlipidemia. PLAN: Direct anterior approach, right total hip arthroplasty. MMODL / IJN: [id number] /
[~2023-11-11 10:11] MED LIST changes: -DEXAMETHASONE SOD PHOSPHATE 4 MG/ML 1 ML VIAL IV ONE; +HYDROmorphone 0.5 MG/0.5 ML SYRINGE IVP PRN; -LACTATED RINGERS 1,000 ML IV SCH; +MIDAZOLAM 2 MG/2 ML VIAL IV PRN; -ONDANSETRON 4 MG/2 ML VIAL IVP ONE; +TRANEXAMIC 1,000 MG/100ML-NACL 1,000 MG in SALINE 1 100ML.BAG IVPB PRN; -ceFAZolin 3 GM in SODIUM CHLORIDE 0.9% 100 ML IVPB PRN; -fentaNYL (PF) 50 MCG/ML 2 ML AMP IV PRN
[2023-11-11] MEDS: MELOXICAM 7.5 MG TAB PO PRN (11:34)
[2023-11-11] MEDS: ACETAMINOPHEN TAB 500 MG TAB PO PRN (11:35)
[2023-11-11] MEDS: ONDANSETRON 4 MG/2 ML VIAL IVP ONE (11:35)
[2023-11-11] MEDS: DEXAMETHASONE SOD PHOSPHATE 4 MG/ML 1 ML VIAL IV ONE (11:35)
[2023-11-11] MEDS: fentaNYL (PF) 50 MCG/ML 2 ML AMP IVP ONE (11:42)
[2023-11-11] MEDS: MIDAZOLAM 2 MG/2 ML VIAL IVP ONE (11:43)
[2023-11-11] MEDS: LACTATED RINGERS 1,000 ML IV SCH ×2 (11:52→22:37)
--- NOTE | 2023-11-11 11:55 | P.ANPRN ---
Procedure Note - Anesthesia - Nerve Block Performed Right Kurtis Single Time Out Performed: Yes (1141) Date of Procedure: 11/11/23 Location of Patient: PreOp Indication: Acute Post-Operative Pain, Dx/Pain Location (Right hip), Requested by Surgeon Specifically requested for management of pain by DrPrudencio: Smith Gotti Sedation Type: Sedate with meaningful contact maintained Preparation: Sterile Prep Position: Supine Catheter: None Needle Types: Pajunk Needle Gauge: 21 Ultrasound used to visualize needle placement: Yes Ultrasound used to observe medication spread: Yes Injectate: 0.5% Ropivacaine (see comment for volume) (20 mL +10 mL of normal saline +4 mg of Decadron) Blood Aspirated: No Pain Paresthesia on Injection Noted: No Resistance on Injection: Normal Image Stored and Saved: Yes Events: Uneventful and Well Tolerated
[2023-11-11] MEDS ORDERED: TRANEXAMIC 1,000 MG/100ML-NACL PREMIX BAG ONE (12:24)
[2023-11-11] MEDS ORDERED: KETAMINE HCL IN 0.9 % NACL 50 MG/5 ML SYRINGE ONE (12:24)
[2023-11-11] MEDS ORDERED: SODIUM CHLORIDE 0.9% (PF) 10 ML VIAL ONE (12:24)
[2023-11-11] MEDS ORDERED: MIDAZOLAM 2 MG/2 ML VIAL ONE (12:24)
[2023-11-11] MEDS ORDERED: ROPIVACAINE 5 MG/ML 30 ML VIAL ONE (12:24)
[2023-11-11] MEDS ORDERED: DEXAMETHASONE SOD PHOSPHATE 4 MG/ML 1 ML VIAL ONE (12:24)
[2023-11-11] MEDS ORDERED: LIDOCAINE 2% (PF) 20 MG/ML 2 ML VIAL ONE (12:24)
[2023-11-11] MEDS ORDERED: PROPOFOL 10 MG/ML 20 ML VIAL IV ONE (12:24)
[2023-11-11] MEDS ORDERED: ePHEDrine 50 MG/ML 1 ML VIAL ONE (12:24)
[2023-11-11] MEDS: ceFAZolin 1,000 MG in SODIUM CHLORIDE 0.9% 1,000 ML IRRIGATION ONE (12:26)
[2023-11-11] MEDS: ceFAZolin 3 GM in SODIUM CHLORIDE 0.9% 100 ML IVPB PRN (12:26)
[2023-11-11] MEDS: LACTATED RINGERS 1,000 ML IV ONE (13:25)
[2023-11-11] MEDS ORDERED: ONDANSETRON 4 MG/2 ML VIAL IVP PRN (14:19)
[2023-11-11] MEDS ORDERED: HYDROmorphone 0.5 MG/0.5 ML SYRINGE IVP PRN ×2 (14:19)
[2023-11-11] MEDS ORDERED: HYDROcodone/APAP 5-325MG 1 EACH TAB PO PRN (14:19)
[2023-11-11] MEDS ORDERED: NALOXONE 0.4 MG/ML 1 ML VIAL IV PRN (14:19)
--- NOTE | 2023-11-11 14:19 | P.OP ---
Date of Procedure: 11/11/23 Preoperative Diagnosis: Right hip osteoarthritis Postoperative Diagnosis: Right hip osteoarthritis Procedure(s) Performed: Direct anterior right total hip arthroplasty Implants: 1. DePuy Corail KLA size 12 high offset with a collar press-fit femoral stem 2. DePuy George 56 mm press-fit acetabular shell 3. DePuy George neutral polyethylene acetabular liner 36 mm ID 56 mm OD 4. Biolox delta ceramic femoral head +5 36 mm 5. George cancellous bone screw 6.5 mm x 20 mm Anesthesia: regional (Erector spinae block), spinal Surgeon: Smith Gotti Multimedia Journalist #1: Damian Beck Estimated Blood Loss (ml): 65 Pathology: none sent Condition: stable Disposition: PACU Indications for Procedure: 68-year-old patient seen with symptomatic right hip osteoarthritis. After having treatment options discussed, he elected to proceed with direct anterior right total hip arthroplasty. Operative Findings: See description of procedure Description of Procedure: The patient was taken to the operative suite. Patient underwent a spinal anesthetic by the department of anesthesia. Patient was then transferred to the [place] table. Patient was given preoperative IV antibiotics and TXA. Both lower extremities were placed in standard leg spars. The hip was then prepped and draped in the normal sterile orthopedic fashion. A standard anterior incision was made beginning 3 cm lateral and 1 cm distal to the ASIS extending 10 cm. Dissection was then carried down through the subcutaneous soft tissues down to the fascia overlying the tensor fascia mundo. An incision was now made through the fascia. Careful dissection was taken down exposing the tensor fascia mundo muscle. A Cobra retractor was now placed along the medial femoral neck and a second one along the lateral femoral neck. The venous circumflex vessels were now identified, cauterized and clipped. We identified the anterior hip capsule. An incision was made through the hip capsule along the lateral border. I performed a partial anterior capsulectomy. Retractors were now placed around the femoral neck itself. A femoral neck cut was now made with a sagittal saw. It was completed with an osteotome at the lateral neck area. The femoral head was now removed without difficulty. The extremity was now rotated to 60 of external rotation. It was locked in position. Residual labrum was now debrided out. Serial reaming was performed of the acetabulum while Isaiah TONEY assisted holding an anterior retractor for exposure. Once we reached the appropriate size and a trial was position and fit nicely. The appropriate size was now chosen opened and made available. It was introduced into the acetabulum without difficulty. The C-arm/fluoroscopy was now brought into the operative field. We made sure we had a true AP pelvic view. We now under direct C- arm/fluoroscopy introduced into the acetabular component with appropriate version and inclination. I held the cup in appropriate position well Isaiah TONEY used a mallet to seat the acetabular component. I noted the component now to be well seated and stable. I did decide to augment the fixation with 1 single cancellous bone screw which had good purchase and fixation. The C-arm was pulled back. An appropriate liner was introduced and clicked into position. It was felt to be stable. At this point retractors were removed. The extremity was now placed into 140 external rotation with no traction. The leg was now dropped to the ground and adducted. Appropriate retractors were now positioned along the proximal femur. We also placed our femoral look into position. Additional capsular releasing was performed to gain access to the proximal femur. We now used a box osteotome. A canal finder was now utilized. Serial broaching was now performed with the assistance of Isaiah TONEY tapping the broaches down with a mallet while held the broach in appropriate rotation and position. This was done until we reached the appropriate size with good overall rotational stability. Appropriate calcar planing was performed. A trial head/neck was placed into position. The hip was now reduced. The C- arm/fluoroscopy was brought back into the operative field. I obtained an AP of the pelvis which demonstrated adequate leg length alignment. The trial components appeared adequately sized and position. The C-arm/fluoroscopy was pulled back. Retractors were repositioned and the hip was dislocated. The leg was again taken down to the ground and adducted. Appropriate retractors were repositioned as well as the femoral hook. All trial components were removed. The femoral implant was opened along with the femoral head. The femoral implant was introduced on the appropriate handle into our pre-broached area. I held the component position well Isaiah TONEY used a mallet to seat the femoral component. The femoral component was now noted to be well seated and stable.. The femoral head was introduced with good positioning and fixation noted. Retractors were now removed. The hip was now reduced. There appeared be good positioning of the hip confirmed on intraoperative fluoroscopy. Spot films were obtained to document this. A second gram of TXA was given. Bipolar cautery had been utilized intermittently through the procedure for hemostasis. The wound was irrigated copiously with pulse lavage mechanical irrigation. The fascia was repaired with Vicryl suture. The subcutaneous soft tissues were repaired in layers with Vicryl suture. The skin was approximated with pernio/Dermabond. Sterile dressings were applied. Patient was then awakened, transferred to a bed and taken to recovery in stable condition. Isaiah TONEY assisted with the complex procedure.
--- NOTE | 2023-11-11 15:47 | XR ---
Fluoroscopy INDICATION: Pain FINDINGS: Fluoroscopy time: 17 seconds. Total dose area product (DAP) in uGy*m?, mGy*cm? (or similar): 1.0325 Images obtained: 3. IMPRESSION: 1. Documentation of fluoroscopy.
[2023-11-11] MEDS: HYDROmorphone 0.5 MG/0.5 ML SYRINGE IVP PRN (16:04)
--- NOTE | 2023-11-11 16:23 | FL ---
Fluoroscopy INDICATION: Pain FINDINGS: Fluoroscopy time: 17 seconds. Total dose area product (DAP) in uGy*m?, mGy*cm? (or similar): 1.0325 Images obtained: 0. IMPRESSION: 1. Documentation of fluoroscopy.
[2023-11-11] MEDS: ceFAZolin 3 GM in SODIUM CHLORIDE 0.9% 100 ML IVPB SCH (20:22)
[2023-11-11] MEDS: SENNOSIDES-DOCUSATE SODIUM 1 EACH TAB PO SCH (20:22)
[2023-11-12] MEDS: HYDROcodone/APAP 7.5-325MG 1 EACH TAB PO PRN (01:54)
[2023-11-12 03:01] VITALS: RESP 17
[2023-11-12 08:45] VITALS: BP 142/51; PULSE 54; TEMP 97.8
[2023-11-12] MEDS: FAMOTIDINE 20 MG TAB PO SCH (09:21)
[2023-11-12] MEDS: ENOXAPARIN 40 MG/0.4 ML SYRINGE SQ SCH (09:21)
[2023-11-12] MEDS ORDERED: LORATADINE 10 MG TAB PO PRN (10:54)
--- NOTE | 2023-11-12 11:07 | P.CONS ---
History of Present Illness - Reason for Consult Consult date: 11/12/23 Medical management hypertension Requesting physician: Smith Gotti - Chief Complaint Right hip osteoarthritis status post direct anterior right total hip arthro - History of Present Illness This is a pleasant 68-year-old gentleman with past medical history significant for hypertension, hyperlipidemia, osteoarthritis, sleep apnea wears CPAP, glaucoma, anxiety, and multiple other medical issues, status post direct anterior right total hip arthroplasty. Tolerated procedure well. Ambulating with walker within room, tolerating exertion well. PT/stairs pending. reports significant pain during the night, improved with pain management regime. Passing flatus, no bowel movement. Denies chest pain, palpitations or shortness of breath. Maintaining O2 sats in the mid to high 90s on room air .vital signs stable/blood pressures controlled. Afebrile. Denies lightheadedness dizziness, focal deficits. Review of Systems Constitutional: Denied any fatigue denied any fever. Cardio vascular: denied any chest pain, palpitations Gastrointestinal denied any nausea vomiting Pulmonary: Denied any shortness of breath cough Neurologic denied any new focal deficits ROS Statement: Those systems with pertinent positive or pertinent negative responses have been documented in the HPI. ROS Other: All systems not noted in ROS Statement are negative. Past Medical History Past Medical History: Eye Disorder, Hyperlipidemia, Hypertension, Osteoarthritis (OA), Sleep Apnea/CPAP/BIPAP Additional Past Medical History / Comment(s): EARLY GLAUCOMA. USES CPAP. History of Any Multi-Drug Resistant Organisms: None Reported Past Surgical History: Orthopedic Surgery Additional Past Surgical History / Comment(s): ARTHROSCOPIY PERCY SHOULDERS. NASAL SURG. hip replaced left , colonoscopy , december 20 right meniscus surgery, Past Anesthesia/Blood Transfusion Reactions: No Reported Reaction Past Psychological History: Anxiety Smoking Status: Never smoker Past Alcohol Use History: Occasional Past Drug Use History: None Reported - Past Family History Mother Family Medical History: Cancer, Deep Vein Thrombosis (DVT) Additional Family Medical History / Comment(s): lung Father Family Medical History: Coronary Artery Disease (CAD), Dementia, Osteoarthritis (OA) Medications and Allergies Home Medications Medication Instructions Recorded Confirmed Type Pravastatin Sodium [Pravachol] 40 mg PO DAILY 01/26/19 11/05/23 History Tamsulosin [Flomax] 0.4 mg PO DAILY 06/21/21 11/05/23 History lisinopriL [Lisinopril] 10 mg PO DAILY 12/17/22 11/05/23 History Ibuprofen [Motrin Ib] 200 mg PO DIRECTED PRN 11/05/23 11/05/23 History Otc Claritan 10 mg PO DAILY PRN 11/05/23 11/05/23 History Allergies Allergy/AdvReac Type Severity Reaction Status Date / Time pollen extracts Allergy Mild RUNNY Verified 11/05/23 12:36 NOSE, CONGESTION Physical Exam Vitals: Vital Signs Temp Pulse Pulse Resp BP BP Pulse Ox 11/12/23 08:34 97.8 F 54 L 17 142/51 97 11/12/23 01:47 97.9 F 60 17 113/69 95 11/11/23 18:53 97.4 F L 77 20 119/67 94 L 11/11/23 18:15 74 122/68 93 L 11/11/23 18:00 73 128/76 92 L 11/11/23 17:45 78 109/67 91 L 11/11/23 17:30 78 127/79 93 L 11/11/23 17:15 75 122/77 94 L 11/11/23 17:00 67 157/120 96 11/11/23 16:45 63 112/67 88 L 11/11/23 16:30 72 117/74 99 11/11/23 16:15 61 126/79 97 11/11/23 16:02 97.6 F 62 18 121/78 95 11/11/23 15:30 52 L 16 98/75 99 11/11/23 15:15 48 L 16 93/56 97 11/11/23 15:00 57 L 16 110/60 97 11/11/23 14:45 54 L 16 102/64 97 11/11/23 14:30 97 F L 69 16 99/55 97 11/11/23 11:06 97.4 F L 45 L 18 115/61 94 L Intake and Output 11/11/23 11/12/23 11/12/23 22:59 06:59 14:59 Intake Total 300 Output Total 425 Balance 300 -425 Intake: IV 300 Output: Urine 425 Other: Weight 105.2 kg PHYSICAL EXAM: VITAL SIGNS: [As above] GENERAL: Alert and oriented x 3, pleasant, sitting up in bed, no acute distress HEENT: Normocephalic conjunctivae normal. eyes normal. NECK: Supple, no JVD. CARDIOVASCULAR: S1, S2 regular.. No murmur RESPIRATION: Unlabored, equal air entry, clear to auscultation . ABDOMEN: Soft, nontender . No guarding. no masses palpable. +BS. EXTREMITIES: Right lower extremity dressing clean dry and intact, minimal edema, no calf tenderness, positive DP pulse NERVOUS SYSTEM: Cranial N 2-12 grossly normal. Moves all 4 limbs. No focal deficits. Strength and sensation grossly intact. Skin: Warm and dry, no rash Assessment and Plan Assessment: Right hip osteoarthritis, status post direct anterior right total hip arthroplasty Obstructive sleep apnea, uses CPAP Morbid obesity, BMI 32 Hypertension Hyperlipidemia Glaucoma, reported early Anxiety Plan: Continue on current medication regimen ,monitoring and symptomatic treatment. Pain management, DVT prophylaxis as per primary. Aggressive pulmonary toileting with incentive spirometer reinforced. Home meds have been reviewed and resumed accordingly. PT/stairs pending. Discharge planning in progress as per orthopedic surgery. Follow-up with PCP in 1 week. Thank you for the consult. The impression and plan of care has been dictated as directed. : I performed a history and examination of this patient, discussed the same with the dictator. I agree with the dictator's note ,documented as a scribe. Any additional findings or plans will be noted.
[2023-11-12] MEDS: PANTOPRAZOLE 40 MG/10 ML VIAL IVP SCH (11:08)
[2023-11-12] MEDS: MULTIVITAMINS, THERA 1 EACH TAB PO SCH (11:08)
[2023-11-12] MEDS: TAMSULOSIN 0.4 MG CAP.ER.24H PO SCH (11:08)
[2023-11-12 12:09] LABS: Basophils # (A) 0.01 X 10*3/uL (0.00-0.10); Basophils % (A) 0.1 %; Eosinophils # (A) 0.01 X 10*3/uL (0.04-0.35); Eosinophils % (A) 0.1 %; HCT 40.4 % (39.6-50.0); HGB 13.4 g/dL (13.0-17.0); Lymphocytes # (A) 1.02 X 10*3/uL (0.90-5.00); Lymphocytes % (A) 10.5 %; MCH 30.9 pg (27.0-32.0); MCHC 33.2 g/dL (32.0-37.0); MCV 93.3 FL (80.0-97.0); Mean Platelet Volume 11.1 FL (9.5-12.2); Monocytes # (A) 0.76 X 10*3/uL (0.20-1.00); Monocytes % (A) 7.8 %; NRBC Per 100 WBC 0 X 10*3/uL (0.00-0.01); Neutrophils # (A) 7.87 X 10*3/uL (1.80-7.70); Neutrophils % (A) 81.1 %; Platelet Count 127 X 10*3/uL (140-440); RBC 4.33 X 10*6/uL (4.40-5.60); RDW 13.2 % (11.5-14.5); WBC 9.71 X 10*3/uL (4.50-10.00)
--- NOTE | 2023-11-12 12:42 | P.PN ---
Subjective Progress Note Date: 11/12/23 Principal diagnosis: Status post direct anterior right total hip arthroplasty Patient evaluated at bedside today, he is sitting up having lunch. He he has been ambulating with no significant difficulty. He did very well with physical therapy. He does admit to some slight discomfort on the lateral aspect of the thigh. Currently has no headaches, lightheadedness, chest pain or shortness of breath Objective - Vital Signs Vital signs: Vital Signs Temp 97.8 F 11/12/23 08:34 Pulse 54 L 11/12/23 08:34 Resp 17 11/12/23 08:34 BP 142/51 11/12/23 08:34 Pulse Ox 97 11/12/23 08:34 FiO2 Intake & Output 11/11/23 11/12/23 11/12/23 18:59 06:59 18:59 Intake Total 1901 Output Total 65 425 Balance 1836 -425 Weight 105.2 kg Intake: IV 1901 Output: Urine 425 Estimated Blood Loss 65 - Exam Right lower extremity: Incision is clean, dry, and intact. The foam dressing is in good condition. There is minimal soft tissue swelling and ecchymosis surrounding the medial and lateral aspects of the incision. Calf is soft, no tenderness with palpation. Plantar flexion, dorsiflexion, EHL, FHL are intact. Sensory exam to light touch throughout the extremity is intact, dorsal pedis pulses 2+. - Labs CBC & Chem 7: 11/12/23 06:11 Labs: Abnormal Lab Results - Last 24 Hours (Table) 11/12/23 Range/Units 06:11 RBC 4.33 L (4.40-5.60) X 10*6/uL Plt Count 127 L (140-440) X 10*3/uL Neutrophils # 7.87 H (1.80-7.70) X 10*3/uL Eosinophils # 0.01 L (0.04-0.35) X 10*3/uL Assessment and Plan Assessment: Postoperative day #1 status post direct anterior right total hip arthroplasty Plan: Pain control, plan for discharge with [place] 7.5 mg / 325 mg DVT prophylaxis, aspirin 81 mg twice daily for 30 days Wound care instructions discussed, this to include when to remove bandage, showering instructions, and icing and elevating Home PT/OT after discharge Medical recommendations appreciated Discharge planning: Stable for discharge home today Time with Patient: Less than 30
--- NOTE | 2023-11-12 12:45 | P.DS ---
Providers Date of admission: 11/11/2023 Expected date of discharge: 11/12/23 Attending physician: Smith Gotti Consults: 11/11/23 14:19 Consult Physician Routine Consulting Provider: Juan Antonio Leal Consult Reason/Comments: Medical management Do you want consulting provider notified?: Yes Primary care physician: Juan Antonio Leal MD Hospital Course: Date of admission: 11/11/2023 Date of discharge: 11/12/2023 Admission diagnosis: Status post direct anterior right total hip arthroplasty Discharge diagnosis: Same Attending physician: Dr. Gotti Surgical procedures: Direct anterior right total hip arthroplasty Brief history: Patient is a 68-year-old male with a history of progressive primary right hip osteoarthritis. At this point patient has failed conservative treatment measures and has opted to proceed with a elective direct anterior right total hip arthroplasty. Hospital course: Details of patient's surgery can be found in operative report. Patient tolerated the procedure well and was subsequently transported to orthopedic floor. Patient's orthopeidc and medical care was provided daily. Patient had daily laboratory tests performed for evaluation of overall blood counts. Patient had daily physical therapy to include strengthening range of motion as well as education with walker ambulation. Patient was treated with Lovenox for their postoperative DVT prophylaxis during their inpatient stay. Patient was noted to have a relatively uneventful postoperative course. Patient reported satisfactory pain control with oral pain medications by postoperative day 0. Patient showed satisfactory progress with physical therapy. Patient moved steadily through the program and had no difficulty meeting the goals by postoperative day 1. Given patient's otherwise satisfactory course and having met physical therapy goals, plan is to discharge patient home on postoperative day 1. Discharge condition/disposition: Patient will be discharged home in stable condition. Discharge medications: Instructions are given on resumption of patient's normal daily medications per primary care recommendation, in addition patient will be prescribed [place] 7.5 mg / 325 mg, senna S, aspirin 81 mg. Discharge instructions: 1. Wound care and infection precautions, keep incision dry and covered while showering, no lotions, creams, moisturizers. No soaking, tubs, pools, hottubs. Do not scrub over the incision. 2. Weight-bear as tolerated with walker / cane until follow-up. 3. Ice and elevate when necessary. Do not exceed 20 minutes per hour with ice pack. 4. Utilize compression sleeve until seen at first follow up appointment. 5. Visiting nursing care. 6. Home physical therapy. 7. Pain meds and anticoagulants per prescription. 8. Pain medication has potential to cause constipation. Increase oral fluid and fiber intake. Contact primary care provider if you have not had a bowel movement within 48 hours after discharge 9. No anti-inflammatory medication until discussed at first post operative visit, this including Motrin, Aleve, Mobic, Diclofenac. 10. Follow up in office at 2 weeks postop with Isaiah Beck PA-C/Herberth Khan 11. Follow up with your primary care doctor 7-10 days after discharge. 12. Contact [facility] with any questions, . Procedures: Direct anterior right total hip arthroplasty Patient Condition at Discharge: Good Plan - Discharge Summary Discharge Rx Participant: No New Discharge Prescriptions: New Aspirin [Adult Low Dose Aspirin EC] 81 mg PO BID #60 tab HYDROcodone/APAP 7.5-325MG [Wells 7.5] 1 each PO Q6HR PRN #28 tab PRN Reason: Pain Sennosides/Docusate Sodium [Senna-S 8.6-50 mg Tablet] 1 each PO DAILY PRN #21 tablet PRN Reason: Constipation No Action Pravastatin Sodium [Pravachol] 40 mg PO DAILY lisinopriL [Lisinopril] 10 mg PO DAILY Ibuprofen [Motrin Ib] 200 mg PO DIRECTED PRN PRN Reason: Pain Otc Claritan 10 mg PO DAILY PRN PRN Reason: Allergy Symptoms Tamsulosin [Flomax] 0.4 mg PO DAILY Discharge Medication List Pravastatin Sodium [Pravachol] 40 mg PO DAILY 01/26/19 [History] Tamsulosin [Flomax] 0.4 mg PO DAILY 06/21/21 [History] lisinopriL [Lisinopril] 10 mg PO DAILY 12/17/22 [History] Ibuprofen [Motrin Ib] 200 mg PO DIRECTED PRN 11/05/23 [History] Otc Claritan 10 mg PO DAILY PRN 11/05/23 [History] Aspirin [Adult Low Dose Aspirin EC] 81 mg PO BID #60 tab 11/12/23 [Rx] HYDROcodone/APAP 7.5-325MG [Wells 7.5] 1 each PO Q6HR PRN #28 tab 03/26/24 [Rx] Sennosides/Docusate Sodium [Senna-S 8.6-50 mg Tablet] 1 each PO DAILY PRN #21 tablet 11/12/23 [Rx] Follow up Appointment(s)/Referral(s): [facility], [NON-STAFF] - 1-2 Days ([facility] will call you to schedule your in home nursing and physical therapy visits.) Damian Beck PAC [PHYSICIAN [employer]ER] - 2 Weeks Activity/Diet/Wound Care/Special Instructions: Orthopedic Discharge Instructions: 1. Wound care and infection precautions, keep incision dry and covered while showering, no lotions, creams, moisturizers. No soaking, pools, hot tubs. Do not scrub over incision. 2. Weight-bear as tolerated with walker / cane until follow-up. 3. Ice and elevate when necessary. Do not exceed 20 minutes per hour with ice pack. 4. Utilize compression sleeve until seen at first follow up appointment. 5. Pain meds and anticoagulants per prescription. 6. Pain medication has potential to cause constipation. Increase oral fluid and fiber intake. Contact primary care provider if you have not had a bowel movement within 48 hours after discharge. 7. No anti-inflammatory medication until discussed at first post operative visit, this including Motrin, Aleve, Mobic, Diclofenac. 8. Follow up in office at 2 weeks postop with Isaiah Beck PA-C/Herberth Bridges PA-C 9. Follow up with your primary care doctor 7-10 days after discharge. 10. Contact [facility] with any questions, Wound care instructions: 1. Okay to remove surgical dressing as of 11/18/2023 2. Okay to shower directly over incision after removal of dressing Discharge Disposition: HOME WITH HOME HEALTH SERVICES
[2023-11-13] MEDS ORDERED: lisinopriL 10 MG TAB PO SCH (09:00)
[2023-11-13] MEDS ORDERED: PRAVASTATIN SODIUM 40 MG TAB PO SCH (09:00)
== END 2023-11-12 13:58 | disposition home health service (06) ==
LOC: OR 10:11 → 4SSUR 14:28 → OR 11-12 13:58
PROVIDERS: ATTEND Orthopaedic Surgery
DX: M16.11 Unilateral primary osteoarthritis, right hip (principal); G89.18 Other acute postprocedural pain; I10 Essential (primary) hypertension; M25.751 Osteophyte, right hip; E78.5 Hyperlipidemia, unspecified; Z79.899 Other long term (current) drug therapy
CPT/HCPCS: 97161; 64447; 85025; 73501; 27130; C1776; J2250; J1100; J0690 ×3; J2405; J1650; J3010; C9113; J1170

== ENCOUNTER → 2024-04-22 | Outpatient (CLI) | payer MEDICARE ==
--- NOTE | 2024-04-22 12:20 | MR ---
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 IV Contrast: cc . (None if empty) FINDINGS: Alignment: The lumbar vertebral bodies have preserved heights and alignment. Cord: The conus medullaris and the distal spinal cord appear unremarkable with regards to their signa l intensity and morphology. Bones/Discs: Mild degeneration changes throughout the spine with osteophyte formation and facet joint arthropathy. Intervertebral disc signal is maintained. Inversion recovery signal within the pars int erarticularis of L5., Right greater than left. T12-L1: No evidence of significant spinal canal stenosis or neural foraminal stenosis. L1-L2: No evidence of significant spinal canal stenosis or neural foraminal stenosis. L2-L3: No evidence of significant spinal canal stenosis. Facet joint arthropathy mild bilateral neura l foraminal stenosis. L3-L4: No evidence of significant spinal canal stenosis. Facet joint arthropathy moderate right and m ild to moderate left neural foraminal stenosis. L4-L5: Disc bulge and facet joint arthropathy result in mild spinal canal and mild bilateral neural f oraminal stenosis. L5-S1: No evidence moderate of significant spinal canal stenosis. Facet joint arthropathy moderate bi lateral neural foraminal stenosis. No significant spinal canal or neural foraminal stenosis in the remainder of the visualized levels. Other findings: None. IMPRESSION: 1. No definitive evidence of disc herniation or significant spinal canal stenosis. 2. Mild disc degeneration with associated osteoarthritic changes. Stress reaction edema within the r ight greater than left pars interarticularis of the L5 vertebrae.
== END | disposition home or self-care (01) ==
LOC: RADMRIMAIN 11:27
PROVIDERS: ATTEND Orthopaedic Surgery
DX: M47.816 Spondylosis without myelopathy or radiculopathy, lumbar region
CPT/HCPCS: 72148

== ENCOUNTER 2024-04-29 21:24 | Emergency (ER) | payer MEDICARE ==
[2024-04-29] MEDS: FAMOTIDINE 20 MG TAB PO STA (22:51)
[2024-04-29] MEDS: methylPREDNISolone SOD SUCCI 125 MG/2 ML VIAL IM ONE (22:51)
--- NOTE | 2024-04-29 22:52 | ED ---
Allergic Reaction HPI - General Chief complaint: Allergic Reaction Stated complaint: Allergic Reaction, Insect Sting Time Seen by Provider: 04/29/24 22:46 Source: patient, RN notes reviewed Mode of arrival: ambulatory Limitations: no limitations - History of Present Illness Initial Comments: 68-year-old male presenting with allergic reaction x 3 hours ago. Patient states he had multiple bee stings around 8 PM today to the back of the neck and the right shoulder. Shortly after, patient began to break out in hives in bilateral arms, abdomen, and back. Patient took 2 Benadryl and Claritin prior to arrival, but states hives are worsening. Denies lip or tongue swelling, chest pain, shortness of breath. He has never had this before with previous bee stings. - Related Data Home Medications Medication Instructions Recorded Confirmed Pravastatin Sodium [Pravachol] 40 mg PO DAILY 01/26/19 11/05/23 Tamsulosin [Flomax] 0.4 mg PO DAILY 06/21/21 11/05/23 lisinopriL [Lisinopril] 10 mg PO DAILY 12/17/22 11/05/23 Ibuprofen [Motrin Ib] 200 mg PO DIRECTED PRN 11/05/23 11/05/23 Otc Claritan 10 mg PO DAILY PRN 11/05/23 11/05/23 Previous Rx's Medication Instructions Recorded Aspirin [Adult Low Dose Aspirin EC] 81 mg PO BID #60 tab 11/12/23 HYDROcodone/APAP 7.5-325MG [[place] 1 each PO Q6HR PRN #28 tab 11/12/23 7.5] Sennosides/Docusate Sodium 1 each PO DAILY PRN #21 tablet 11/12/23 [Senna-S 8.6-50 mg Tablet] Famotidine [Pepcid] 40 mg PO DAILY 5 Days #5 tablet 04/29/24 predniSONE [Deltasone] 40 mg PO DAILY 5 Days #10 tab 04/29/24 Allergies Allergy/AdvReac Type Severity Reaction Status Date / Time pollen extracts Allergy Mild RUNNY Verified 04/29/24 22:28 NOSE, CONGESTION Review of Systems ROS Statement: Those systems with pertinent positive or pertinent negative responses have been documented in the HPI. ROS Other: All systems not noted in ROS Statement are negative. Past Medical History Past Medical History: Eye Disorder, Hyperlipidemia, Hypertension, Osteoarthritis (OA), Sleep Apnea/CPAP/BIPAP Additional Past Medical History / Comment(s): EARLY GLAUCOMA. USES CPAP. History of Any Multi-Drug Resistant Organisms: None Reported Past Surgical History: Joint Replacement, Orthopedic Surgery Additional Past Surgical History / Comment(s): ARTHROSCOPIY PERCY SHOULDERS. NASAL SURG. hip replaced left and right , colonoscopy , december 20 right meniscus surgery, Past Anesthesia/Blood Transfusion Reactions: No Reported Reaction Past Psychological History: Anxiety Smoking Status: Never smoker Past Alcohol Use History: Occasional Past Drug Use History: None Reported - Past Family History Mother Family Medical History: Cancer, Deep Vein Thrombosis (DVT) Additional Family Medical History / Comment(s): lung Father Family Medical History: Coronary Artery Disease (CAD), Dementia, Osteoarthritis (OA) General Exam Limitations: no limitations General appearance: alert, in no apparent distress Head exam: Present: atraumatic, normocephalic, normal inspection Eye exam: Present: normal appearance, PERRL, EOMI. Absent: scleral icterus, conjunctival injection, periorbital swelling ENT exam: Present: normal exam, normal oropharynx (No lip or tongue edema), mucous membranes moist Neck exam: Present: normal inspection. Absent: tenderness, meningismus, lymphadenopathy Respiratory exam: Present: normal lung sounds bilaterally. Absent: respiratory distress, wheezes, rales, rhonchi, stridor Cardiovascular Exam: Present: regular rate, normal rhythm, normal heart sounds. Absent: systolic murmur, diastolic murmur, rubs, gallop, clicks GI/Abdominal exam: Present: soft, normal bowel sounds. Absent: distended, tenderness, guarding, rebound, rigid Neurological exam: Present: alert, oriented X3 Psychiatric exam: Present: normal affect, normal mood Skin exam: Present: warm, dry, intact, normal color, rash (Diffuse raised erythematous plaques on bilateral upper extremities and trunk. No visible or palpable stingers present in neck or right side.), urticaria Course Vital Signs 04/29/24 04/29/24 22:28 23:44 Temperature 97.3 F L 97.8 F Pulse Rate 65 62 Respiratory 20 18 Rate Blood Pressure 120/83 124/83 O2 Sat by Pulse 95 99 Oximetry Medical Decision Making - Medical Decision Making Was pt. sent in by a medical professional or institution (, PA, TOOLING INSPECTOR, urgent care, hospital, or [place] health care facility...) When possible be specific @ -No Did you speak to anyone other than the patient for history (EMS, parent, family, police, friend...)? What history was obtained from this source @ -No Did you review nursing and triage notes (agree or disagree)? Why? @ -I reviewed and agree with nursing and triage notes Were old charts reviewed (outside hosp., previous admission, EMS record, old EKG, old radiological studies, urgent care reports/EKG's, [place] health care facility records)? Report findings @ -No old charts were reviewed Differential Diagnosis (chest pain, altered mental status, abdominal pain women, abdominal pain men, vaginal bleeding, weakness, fever, dyspnea, syncope, headache, dizziness, GI bleed, back pain, seizure, CVA, palpatations, mental health, musculoskeletal)? @ -Anaphylaxis, urticaria, allergic reaction, cellulitis, contact dermatitis EKG interpreted by me (3pts min.). @ -None X-rays interpreted by me (1pt min.). @ -None done CT interpreted by me (1pt min.). @ -None done U/S interpreted by me (1pt. min.). @ -None done What testing was considered but not performed or refused? (CT, X-rays, U/S, labs)? Why? @ -None What meds were considered but not given or refused? Why? @ -IM Benadryl considered however patient took 2 Benadryl and Claritin prior to arrival Did you discuss the management of the patient with other professionals (professionals i.e. , PA, TOOLING INSPECTOR, lab, RT, psych nurse, social research assistant, oven heater, teacher, disability liaison officer, family caseworker)? Give summary @ -No Was smoking cessation discussed for >3mins.? @ -No Was critical care preformed (if so, how long)? @ -No Were there social determinants of health that impacted care today? How? (Homelessness, low income, unemployed, alcoholism, drug addiction, transportation, low edu. Level, literacy, decrease access to med. care, detention, rehab)? @ -No Was there de-escalation of care discussed even if they declined (Discuss DNR or withdrawal of care, Hospice)? DNR status @ -No What co-morbidities impacted this encounter? (DM, HTN, Smoking, COPD, CAD, C ancer, CVA, ARF, Chemo, Hep., AIDS, mental health diagnosis, sleep apnea, morbid obesity)? @ -None Was patient admitted / discharged? Hospital course, mention meds given and route, prescriptions, significant lab abnormalities, going to OR and other pertinent info. @ -Patient was discharged. This is a 5-year-old male presenting with allergic reaction x 3 hours status post multiple bee stings. Vital signs are within normal limits, no acute distress. On physical examination there are diffuse [place] area on the upper extremities and trunk. No lip or tongue swelling. Heart and lungs clear to auscultation bilaterally. Patient given IM Solu-Medrol and oral Pepcid. Upon reevaluation, patient reports improvement of symptoms and feel stable for discharge. Prescribed prednisone to start tomorrow as well as Pepcid. Advised to continue Benadryl. Supportive care and return precautions discussed. Patient discharged in stable condition. Case was discussed with my ED attending Dr. Chirinos Undiagnosed new problem with uncertain prognosis? @ -No Drug Therapy requiring intensive monitoring for toxicity (Heparin, Nitro, Insulin, Cardizem)? @ -No Were any procedures done? @ -No Diagnosis/symptom? @ -Allergic reaction to bee sting, urticaria Acute, or Chronic, or Acute on Chronic? @ -Acute Uncomplicated (without systemic symptoms) or Complicated (systemic symptoms)? @ -Complicated Side effects of treatment? @ -No Exacerbation, Progression, or Severe Exacerbation? @ -No Poses a threat to life or bodily function? How? (Chest pain, [place], [place], pneumonia, PE, COPD, DKA, ARF, appy, cholecystitis, CVA, Diverticulitis, Homicidal, Suicidal, threat to staff... and all critical care pts) @ -Not at this time Disposition Clinical Impression: Allergic reaction to insect sting Disposition: HOME SELF-CARE Condition: Stable Instructions (If sedation given, give patient instructions): Urticaria (ED), Insect Bite or Sting (ED) Additional Instructions: Take steroids, Pepcid, and Benadryl as discussed starting tomorrow. Please return to the Emergency Department if symptoms worsen or any other concerns. Prescriptions: predniSONE [Deltasone] 40 mg PO DAILY 5 Days #10 tab Famotidine [Pepcid] 40 mg PO DAILY 5 Days #5 tablet Is patient prescribed a controlled substance at d/c from ED?: No Referrals: Juan Antonio Leal MD [Primary Care Provider] - 1-2 days Time of Disposition: 23:34
[2024-04-29 23:48] VITALS: BP 124/83; PULSE 62; RESP 18; TEMP 97.8
== END 2024-04-29 23:49 | disposition home or self-care (01) ==
LOC: EC 21:24
DX: T63.481A Toxic effect of venom of other arthropod, accidental (unintentional), initial encounter (principal); Z88.8 Allergy status to other drugs, medicaments and biological substances
CPT/HCPCS: 99283; 96372; J2919

== ENCOUNTER → 2024-06-15 | Outpatient (CLI) | payer MEDICARE ==
[2024-06-15 11:14] VITALS: BP 120/74; PULSE 65; RESP 18; TEMP 98
--- NOTE | 2024-06-17 07:55 | P.PAINPG ---
Objective - Vital Signs Vital signs: Intake & Output 06/14/24 06/15/24 06/15/24 18:59 06:59 18:59 Weight 265 kg PQRS Measure Charge Sheet Comment: HISTORY OF PRESENT ILLNESS: A 68 yr old male w at side as a referral from [facility] presents today w severe and chronic LBP > 1 yr secondary to radiculopathy, spondylosis and facet arthropathy without myelopathy for evaluation. Pt states pain level is provoked at 8 /10 in intensity, constant, localized in the lumbar spine, predominantly axial, sore in character w occasional shooting pain towards the hips, LEs and feet. Pain is provoked by standing/ walking for periods > 10 min. Pain is alleviated by PT x 6 wks which ended in 2022, physician guided home stretches daily since 2022, heat, medications (Celebrex), repositioning and rest . PMH: OA, Hyperlipidemia, HTN, TALHA, BPH, Glaucoma, MDD/ Anxiety PSH: BL Shoulder Arthroscopy, Nasal Surgery, BL Hip Replacement, Colonoscopy, R MM Repair SH: Never smoker, Occ ETOH use, No illicit drug use FH: Mo- DVT, CA. Fa- CAD, OA All: See list Meds: See list REVIEW OF ORGAN SYSTEMS: CONSTITUTIONAL: No fevers or chills. No recent weight loss. NEUROLOGICAL: + numbness and tingling along the distal extremities. No seizure disorders or headaches. MUSCULOSKELETAL: + pain PSYCHIATRIC: Denies current depression or suicidal thoughts. Physical Examinations : Constitutional : Cooperative , not in acute distress . Neurologic : Cranial nerve II to XII intact. No focal neurological deficits. Psychiatric : alert & oriented x 3. Matching mood & appropriate affect. Judgment & insight intact. Musculoskeletal : Cervical Spine Motor strength in the deltoid and biceps: Normal right side. Normal Left side Motor strength biceps and the wrist extensors: Normal right side . Normal left side Motor strength in the triceps muscle: Normal right side. Normal left side Deep tendon reflexes: Normal at the biceps. Normal at Brachioradialis. Normal at triceps Vertebral body tenderness to deep palpation over Cervical facet loading test: positive bilaterally Spurling test: positive bilaterally Neck distraction test: positive bilaterally Susanna sign: positive bilaterally Lumbar spine Motor strength lower extremities ,thigh and legs 5/5 Right side , 5/5 Left side Deep tendon reflexes : Normal Knee Jerk. Normal Ankle Jerk Vertebral body tenderness over L4 Bartlett Test positive BL L4-L5 Lumbar facet Loading Test: positive Right / positive Left Range of motion of the lumbar spine Flexion 30 degrees, extension 10 degrees Straight Leg Raise test: Left/ Right positive at degrees Aldo test: positive right / positive left. Severe tenderness over the Sacroiliac joint on the Right / Left sides Gaenslen test: positive bilaterally Seated flexion test: positive bilaterally. Sacral spine : Severe tenderness over the Sacroiliac joint: right side / left side Range of motion: Flexion of the lumbar spine <60 degrees Range of motion: Extension of the lumbar spine <20 degrees Gaenslen's Test positive Aldo test: positive right side / left side Thigh Thrust Test Sacral Thrust Test Imaging: MRI non contrast lumbar spine from 04/22/24 reviewed Assessment/ Plan : L3-L5 radiculopathy Recommendation of JONATHAN L4-L5 #1. Risks, benefits of procedure discussed and patient verbalized understanding. Admits to anti- coagulant use or medical history of diabetes. Protocol for discontinuation/ continuation of medications evy procedure discussed. All questions answered. I have spent greater than 30 minutes on patient care today. Dr Mcknight was available by phone for the evaluation of this patient. The time was used to review the medical records including relevant urine studies and Prescription history (MAPs), review of the available imaging, evaluation and examination of the patient, coordination of care with the medical staff and if applicable referring physicians, as well as creation of the medical record PQRS Narrative: Smoking Status Never smoker Home Medications: Ambulatory Orders Pravastatin Sodium [Pravachol] 40 mg PO DAILY 01/26/19 Tamsulosin [Flomax] 0.4 mg PO DAILY 06/21/21 lisinopriL [Lisinopril] 10 mg PO DAILY 12/17/22 Ibuprofen [Motrin Ib] 200 mg PO DIRECTED PRN 11/05/23 Otc Claritan 10 mg PO DAILY PRN 11/05/23 Aspirin [Adult Low Dose Aspirin EC] 81 mg PO BID #60 tab 11/12/23 HYDROcodone/APAP 7.5-325MG [[place] 7.5] 1 each PO Q6HR PRN #28 tab 11/12/23 Sennosides/Docusate Sodium [Senna-S 8.6-50 mg Tablet] 1 each PO DAILY PRN #21 tablet 11/12/23 Famotidine [Pepcid] 40 mg PO DAILY 5 Days #5 tablet 04/29/24 predniSONE [Deltasone] 40 mg PO DAILY 5 Days #10 tab 04/29/24 Controlled Substance Measures - Controlled Substance Measures Is patient prescribed a controlled substance at discharge?: No
== END ==
LOC: PNWHC3 10:33
PROVIDERS: ATTEND Specialist
DX: M47.26 Other spondylosis with radiculopathy, lumbar region (principal); Z91.09 Other allergy status, other than to drugs and biological substances
CPT/HCPCS: 99202

== ENCOUNTER 2024-06-30 08:37 | Day surgery (SDC) | payer MEDICARE ==
[2024-06-30] MEDS ORDERED: LACTATED RINGERS 1,000 ML IV SCH (08:52)
[2024-06-30 09:03] VITALS: TEMP 97.8
[2024-06-30] MEDS ORDERED: IOPAMIDOL M200 10 ML VIAL ONE (09:40)
[2024-06-30] MEDS ORDERED: methylPREDNISolone ACETATE 40 MG/ML 1 ML VIAL ONE (09:40)
--- NOTE | 2024-06-30 09:48 | P.PCN ---
Date of Procedure: 06/30/24 Procedure(s) Performed: PREOPERATIVE DIAGNOSIS: 1- Lumbar Degenerative Disc Diseases 2-Lumbar radiculopathy POSTOPERATIVE DIAGNOSIS: 1-lumbar degenerative disc disease. 2-lumbar radiculopathy PROCEDURE 1. Lumbar epidural steroid injection under fluoroscopic guidance at the L4-5 level. (Fluoroscopy imaging was available in radiology department) 2. Lumbar epidurogram. ANESTHESIA: Lidocaine 1% 3 and then only. EBL: Minimal PROCEDURE INDICATION: The patient with low back pain and radiculitis symptoms unresponsive to conservative treatment. Fluoroscopy was used to optimize visualization of the needle placement and to maximize safety. PROCEDURE DESCRIPTION / TECHNIQUE: The patient was seen and identified in the preoperative area. Risks, benefits, complications including but not limited to infections ,bleeding ,allergic reaction to the medications ,nerve damage and not complete pain releife , and alternatives were discussed with the patient. The patient agreed to proceed with the procedure and signed the consent, and vital signs were stable. Patient was taken to the OR and time out was completed. The patient was placed in the prone position on procedure table and a pillow was placed under the abdomen to reduce lumbar lordosis. The lumbosacral area was prepped and draped in the usual sterile fashion.ere closely monitored during the procedure. Vital signs was monitered during the entire procedure. Using anterior-posterior fluoroscopy, the L4-5 interlaminar space was identified and the skin over this site was marked and then infiltrated with 1% lidocaine subcutaneously. Subsequently, a 20-gauge Tuohy epidural needle was inserted and advanced toward the epidural space using the ``Loss of resistance technique and guided by AP and lateral fluoroscopy. The correct needle position in the epidural space was verified with the injection of 2 mL of the water soluble contrast dye Isovue 200 contrast and observing an excellent epidurogram with the epidural spread of the dye, after negative aspiration for blood and CSF and in the absence of paresthesias. Again after negative aspiration, a 5 ml mixture containing 40 mg of Depo-medrol ( Preservetive Free ), and 2 ml of preservative free Normal Saline, and 2 ml of preservative free lidocaine 1% solution was injected and a washout of epidurogram was seen. Needle was withdrawn intact, skin was cleansed, and bandages were applied. COMPLICATIONS: None DISPOSITION / PLANS: The patient was placed in a supine position and transferred to the recovery area in a stable condition for observation. There was no evidence of lower extremity motor or sensory deficit after the procedure. Patient was discharged from the recovery room after meeting discharge criteria. Home discharge instructions were given to the patient by the staff. The patient was reexamined prior to discharge. The patient will schedule a follow up in the clinic in 2-4 weeks.
[2024-06-30 09:56] VITALS: RESP 18
[2024-06-30 10:11] VITALS: BP 112/71; PULSE 48
--- NOTE | 2024-06-30 11:53 | FL ---
Fluoroscopy INDICATION: Pain FINDINGS: Fluoroscopy time: 4.3 seconds. Total dose area product (DAP) in uGy*m?, mGy*cm? (or similar): 0.88743 Images obtained: 2. [place] directed towards the L4-5 lumbar level IMPRESSION: 1. Documentation of fluoroscopy. [facility] , 06/30/2024 11:51 AM
== END 2024-06-30 10:15 | disposition home or self-care (01) ==
LOC: ORPAIN 08:37
PROVIDERS: ATTEND Specialist
DX: M51.16 Intervertebral disc disorders with radiculopathy, lumbar region (principal)
CPT/HCPCS: 62323; Q9966; J1010

== ENCOUNTER → 2024-07-02 | Outpatient (CLI) | payer MEDICARE ==
--- NOTE | 2024-07-02 11:52 | CT ---
EXAMINATION TYPE: CT chest wo con DATE OF EXAM: 07/02/2024 COMPARISON: None CLINICAL INDICATION: Male, 68 years old with history of R91.1 LUNG NODULE; PHH, nodules, asbestos exp osure TECHNIQUE: CT scan of the thorax is performed without IV contrast. CT DLP: 582.[address] CTDI: mGy Automated exposure control for dose reduction was used. FINDINGS: There is a focal area of tree-in-bud density in the right lower lobe posteriorly which could be acute or chronic in nature and likely inflammatory in nature. Neoplasm is not entirely excluded and follow -up in 3-4 months is recommended. There is no suspicious lung mass. There is no pleural effusion or pneumothorax. There is mild cardiomegaly. There is aneurysmal dilatation of the ascending thoracic aorta which aga ures 4.2 cm. There is no mediastinal, hilar or axillary adenopathy. Limited scanning through the upper abdomen reveals no gross abnormality. No focal osseous lesions are seen. IMPRESSION: Focal area of tree-in-bud density in the right lung base posteriorly as described above. Short-term f ollow-up in 3-4 months is recommended. [facility], , 07/02/2024 11:50 AM
== END | disposition home or self-care (01) ==
LOC: RADCTMAIN 11:20
PROVIDERS: ATTEND Internal Medicine Pulmonary Disease
DX: I71.20 Thoracic aortic aneurysm, without rupture, unspecified (principal); R91.1 Solitary pulmonary nodule; J98.4 Other disorders of lung
CPT/HCPCS: 71250

== ENCOUNTER → 2024-07-22 | Outpatient (CLI) | payer MEDICARE ==
[2024-07-22 11:34] VITALS: BP 116/74; PULSE 52; RESP 19; TEMP 97.9
--- NOTE | 2024-07-22 15:06 | P.PAINPG ---
Objective - Vital Signs Vital signs: Vital Signs Temp 97.9 F 07/22/24 11:31 Pulse 52 L 07/22/24 11:31 Resp 19 07/22/24 11:31 BP 116/74 07/22/24 11:31 Pulse Ox 96 07/22/24 11:31 FiO2 Intake & Output 07/21/24 07/22/24 07/22/24 18:59 06:59 18:59 Weight 265 kg PQRS Measure Charge Sheet Mode of Arrival: Ambulatory Comment: HISTORY OF PRESENT ILLNESS: A 68 yr old male w at side presents today w severe and chronic LBP > 1 yr secondary to radiculopathy, spondylosis and facet arthropathy without myelopathy for evaluation s/p JONATHAN L4-L5 #1. Pt states he experienced >50% pain relief x 3 wks s/p procedure. Pt states pain level is provoked at 4-5 /10 in intensity, constant, localized in the lumbar spine, predominantly axial, sore in character w occasional shooting pain towards the hips, LEs and feet. Pain is provoked by standing/ walking for periods > 10 min. Pain is alleviated by PT x 6 wks which ended in 2022, physician guided home stretches daily since 2022, heat, medications, repositioning and rest . Interventional procedures include JONATHAN L4-L5 x1 Medications include Celebrex REVIEW OF ORGAN SYSTEMS: CONSTITUTIONAL: No fevers or chills. No recent weight loss. NEUROLOGICAL: + numbness and tingling along the distal extremities. No seizure disorders or headaches. MUSCULOSKELETAL: + pain PSYCHIATRIC: Denies current depression or suicidal thoughts. Physical Examinations : Constitutional : Cooperative , not in acute distress . Neurologic : Cranial nerve II to XII intact. No focal neurological deficits. Psychiatric : alert & oriented x 3. Matching mood & appropriate affect. Judgment & insight intact. Musculoskeletal : Cervical Spine Motor strength in the deltoid and biceps: Normal right side. Normal Left side Motor strength biceps and the wrist extensors: Normal right side . Normal left side Motor strength in the triceps muscle: Normal right side. Normal left side Deep tendon reflexes: Normal at the biceps. Normal at Brachioradialis. Normal at triceps Vertebral body tenderness to deep palpation over Cervical facet loading test: positive bilaterally Spurling test: positive bilaterally Neck distraction test: positive bilaterally Susanna sign: positive bilaterally Lumbar spine Motor strength lower extremities ,thigh and legs 5/5 Right side , 5/5 Left side Deep tendon reflexes : Normal Knee Jerk. Normal Ankle Jerk Vertebral body tenderness over L4 Bartlett Test positive BL L4-L5 Lumbar facet Loading Test: positive Right / positive Left Range of motion of the lumbar spine Flexion 30 degrees, extension 10 degrees Straight Leg Raise test: Left/ Right positive at degrees Aldo test: positive right / positive left. Severe tenderness over the Sacroiliac joint on the Right / Left sides Gaenslen test: positive bilaterally Seated flexion test: positive bilaterally. Sacral spine : Severe tenderness over the Sacroiliac joint: right side / left side Range of motion: Flexion of the lumbar spine <60 degrees Range of motion: Extension of the lumbar spine <20 degrees Gaenslen's Test positive Aldo test: positive right side / left side Thigh Thrust Test Sacral Thrust Test Imaging: MRI non contrast lumbar spine from 04/22/24 reviewed Assessment/ Plan : L3-L5 radiculopathy Will manage residual pain and may RTC on an as needed basis. All questions answered. I have spent greater than 30 minutes on patient care today. Dr Mcknight was available by phone for the evaluation of this patient. The time was used to review the medical records including relevant urine studies and Prescription history (MAPs), review of the available imaging, evaluation and examination of the patient, coordination of care with the medical staff and if applicable referring physicians, as well as creation of the medical record - Pain Location Lower Back Pharmacological Interventions: Epidural PQRS Narrative: Smoking Status Never smoker Narcotic Agreement Date Signed 07/22/24 Blood Pressure 116/74 Pain Intensity [Lower Back] 3 Scale Used Numeric (1 - 10) Hx Alcohol Use (MH) No Home Medications: Ambulatory Orders Pravastatin Sodium [Pravachol] 40 mg PO DAILY 01/26/19 Tamsulosin [Flomax] 0.4 mg PO DAILY 06/21/21 lisinopriL [Lisinopril] 10 mg PO DAILY 12/17/22 Otc Claritan 10 mg PO DAILY PRN 11/05/23 Celecoxib 200 mg PO DAILY 06/25/24 Escitalopram [Lexapro] 10 mg PO DAILY 06/25/24 Controlled Substance Measures - Controlled Substance Measures Is patient prescribed a controlled substance at discharge?: No
== END ==
LOC: PNWHC3 11:13
PROVIDERS: ATTEND Specialist
DX: M47.26 Other spondylosis with radiculopathy, lumbar region (principal); Z91.09 Other allergy status, other than to drugs and biological substances
CPT/HCPCS: 99211

== ENCOUNTER → 2025-01-29 | Day surgery (SDC) | payer MEDICARE ==
[~2025-01-29] MED LIST changes: +ALPRAZolam 0.25 MG TAB PO PRN; +ALPRAZolam 0.5 MG TAB PO PRN; +HEPARIN SODIUM,PORCINE (1 ML) 2,500 UNIT in SODIUM CHLORIDE 0.9% 250 ML IRRIGATION PRN; +HEPARIN SODIUM,PORCINE 10,000 UNIT in SODIUM CHLORIDE 0.9% 1,000 ML IRRIGATION PRN; -HYDROmorphone 0.5 MG/0.5 ML SYRINGE IVP PRN; -MIDAZOLAM 2 MG/2 ML VIAL IV PRN; +NITROGLYCERIN SL TABS 0.4 MG TAB SUBLINGUAL PRN; -TRANEXAMIC 1,000 MG/100ML-NACL 1,000 MG in SALINE 1 100ML.BAG IVPB PRN
[2025-01-29] MEDS: ATORVASTATIN 80 MG TAB PO STA (11:31)
[2025-01-29] MEDS: ASPIRIN 325 MG TAB PO STA (11:31)
[2025-01-29] MEDS: SODIUM CHLORIDE 0.9% 1,000 ML in EMPTY BAG 1 BAG IV SCH (11:32)
[2025-01-29] MEDS: IV FLUID CONTINUATION 1,000 ML IV ONE (11:33)
[2025-01-29 11:35] VITALS: RESP 14; TEMP 97.9
[2025-01-29] MEDS: fentaNYL (PF) 50 MCG/ML 2 ML AMP IVP ONE (13:34)
[2025-01-29] MEDS: MIDAZOLAM 2 MG/2 ML VIAL IVP ONE (13:34)
[2025-01-29] MEDS: LIDOCAINE 1% INJ 10MG/ML (20 ML MDV) SQ ONE (13:38)
[2025-01-29] MEDS: VERAPAMIL SYRINGE (5 MG/10 ML) INTRAARTER ONE (13:39)
[2025-01-29] MEDS: HEPARIN SODIUM 1,000 UN/ML (10ML VL) IVP ONE (13:42)
[2025-01-29] MEDS: HEPARIN SODIUM (1,000 UNIT/ML) 1,000 UNIT in SODIUM CHLORIDE 0.9% 1,000 ML IRRIGATION ONE (13:43)
[2025-01-29] MEDS: HEPARIN SODIUM,PORCINE (1 ML) 2,500 UNIT in SODIUM CHLORIDE 0.9% 250 ML IRRIGATION ONE (13:44)
[2025-01-29] MEDS: IOPAMIDOL-370 100ML BTL INJ ONE (13:52)
--- NOTE | 2025-01-29 13:53 | P.CARDCATH ---
Description of Procedure: PROCEDURES PERFORMED: Left heart catheterization, bilateral coronary angiography, ultrasound guided arterial access INDICATION: Abnormal stress test CONSENT:I have discussed the risks, benefits and alternative therapies for the above-mentioned procedure and for both sedation/analgesia as well as necessary blood product administration, if indicated, as they pertain to this patient. The patient has indicated understanding and acceptance of the risks and procedures discussed. PROCEDURE: After the risks, benefits and alternatives of the above mentioned procedure explained in detail with the patient, informed consent was obtained. Patient was taken to the catheterization lab and prepped and draped in usual fashion. Ultrasound guidance was used to assess for arterial access. 1% lidocaine was used to anesthetize the right radial artery. A 6-Burkinan sheath was placed in the right radial artery using modified Seldinger technique and ultrasound guidance. Left coronary angiography was performed with a 5-Burkinan JL 3.5 catheter and right coronary angiography was performed with a 5-Burkinan FR5 catheter in various views. A 5-Burkinan FR5 catheter was inserted into the left ventricle and pressure measurements were obtained. The right radial sheath was removed and a TR band was placed with hemostasis achieved. The patient to lerated the procedure well. Patient was transported back to the post catheterization holding area in stable condition. Conscious Sedation: Patient was monitored under the direct supervision of myself for conscious sedation using Versed and fentanyl for a total duration of 12 minutes HEMODYNAMICS: Aorta: 120/72 LV: 120/10, LVEDP 18 SELECTIVE CORONARY ARTERIOGRAPHY: LEFT MAIN: The left main is a large caliber vessel which bifurcates into the LAD and circumflex. There is no significant stenosis. LEFT ANTERIOR DESCENDING CORONARY ARTERY: LAD is a large caliber vessel which wraps around to the apex. There is no significant stenosis. LEFT CIRCUMFLEX CORONARY ARTERY: Left circumflex is a moderate caliber vessel without significant stenosis. RIGHT CORONARY ARTERY: The right coronary artery is a large caliber vessel which gives off a PDA and PLV branch and is the dominant vessel. There is no significant stenosis. FINAL IMPRESSION: 1. Normal coronary arteries as described above. 2. Mildly elevated left sided filling pressures PLAN: 1. Aggressive risk factor modification per most recent ACC/AHA guidelines. 2. Follow-up in the office in 1-2 weeks.
[2025-01-29 18:29] VITALS: BP 96/50; PULSE 65
== END ==
LOC: CATHCVL 11:07
PROVIDERS: ATTEND Internal Medicine
DX: R94.39 Abnormal result of other cardiovascular function study (principal); R94.31 Abnormal electrocardiogram [ECG] [EKG]; I10 Essential (primary) hypertension; E78.2 Mixed hyperlipidemia; G47.33 Obstructive sleep apnea (adult) (pediatric); Z82.49 Family history of ischemic heart disease and other diseases of the circulatory system; Z79.899 Other long term (current) drug therapy
CPT/HCPCS: 93458; 99152; C1769; C1894; J2250; J1644 ×2; J2003; J3010; Q9967